=== PATIENT | male | born 1955 | race Caucasian/White ===

== ENCOUNTER 2017-01-19 21:53 | Inpatient (IN) | payer OTHER ==
[~2017-01-19] VITALS: Ht 175.3 cm; Wt 141.0 kg
[~2017-01-19 21:53] MED LIST: /MAGN40TA PO; /TAMS4CA PO; ASPI81TA4 PO; BACT2OIN TOP; BACT800T5 PO; LASI40TA PO; LISI40TAB PO; NIAC500T42 PO; POTA20LI3 PO; PROSCAR PO; TYLE325T5 PO; VIAG100T PO
[2017-01-19] MEDS ORDERED: CLINDAMYCIN 600 MG in APPROPRIATE DILUENT 1 EA IV ONE (23:15)
[2017-01-19 23:19] LABS: BASO % 0.6 % (0.0-1.0); DIFF SLIDE NUMBER 130; EOS % 2.3 % (0.0-3.0); LARGE UNSTAINED CELL % 1.7 % (0.0-4.0); LYMPH % 17.8 % (24.0-44.0); MEAN CORPUSCULAR HEMOGLOBIN 28.1 pg (27.0-33.0); MEAN CORPUSCULAR HGB CONC 30.5 g/dl (32.0-36.5); MEAN CORPUSCULAR VOLUME 91.9 fl (80.0-96.0); MONO % 9.8 % (0.0-5.0); NEUTROPHILS % 67.8 % (36.0-66.0); PLATELET COUNT, AUTOMATED 206 k/mm3 (150-450); RED CELL DISTRIBUTION WIDTH 16.2 % (11.5-14.5); WHITE BLOOD COUNT 8.4 K/mm3 (4.0-10.0)
[2017-01-19 23:20] LABS: ADD MORPHOLOGY? YES; BASO # 0.1 K/mm3 (0.0-0.2); EOS # 0.2 K/mm3 (0.0-0.50); LARGE UNSTAINED CELL # 0.1 K/mm3 (0.0-0.4); LYMPH # 1.5 K/mm3 (1.5-4.5); MONO # 0.8 K/mm3 (0.0-0.8); NEUTROPHILS # 5.7 K/mm3 (1.8-7.7)
[2017-01-19 23:33] LABS: ANION GAP 2 MEQ/L (8-16); BLOOD UREA NITROGEN 16 MG/DL (7-18); CALCIUM LEVEL 8.3 MG/DL (8.5-10.1); CARBON DIOXIDE LEVEL 39 MEQ/L (21-32); CHLORIDE LEVEL 98 MEQ/L (98-107); CREATININE FOR GFR 0.98 MG/DL (0.70-1.30); GLOMERULAR FILTRATION RATE > 60.0 (>56); GLUCOSE, FASTING 95 MG/DL (70-105); POTASSIUM SERUM 3.8 MEQ/L (3.5-5.1); SODIUM LEVEL 139 MEQ/L (136-145)
[2017-01-19 23:35] LABS: ALBUMIN 2.7 GM/DL (3.2-5.2); ALBUMIN/GLOBULIN RATIO 0.73 (1.00-1.93); BILIRUBIN,DIRECT 0.5 MG/DL (0.0-0.2); TOTAL PROTEIN 6.4 GM/DL (6.4-8.2)
[2017-01-19 23:54] LABS: ANISOCYTOSIS 1+; HYPOCHROMASIA 1+
--- NOTE | 2017-01-20 | REPUSA ---
Clinical history: Pain, swelling. Findings: The common femoral, superficial femoral, popliteal, and other deep venous structures compre ss normally and demonstrate normal color Doppler flow. Normal venous waveforms with augmentation are seen. Impression: No evidence of deep vein thrombosis in the femoral popliteal venous system.
[2017-01-20 00:04] LABS: INR 1.25
[2017-01-20] MEDS ORDERED: BACT800T5 PO (00:09)
[2017-01-20] MEDS ORDERED: FLOM5CAP PO (00:09)
[2017-01-20] MEDS ORDERED: ASPI81TA13 PO (00:09)
[2017-01-20] MEDS ORDERED: PROS5TAB PO (00:09)
[2017-01-20] MEDS ORDERED: LISI40TAB PO (00:09)
[2017-01-20] MEDS ORDERED: VIAG100T PO (00:09)
[2017-01-20] MEDS ORDERED: ACETAMINOPHEN TAB 650MG DOSE (2X325MG) PO PRN (00:45)
[2017-01-20 02:00] VITALS: BP 167/83; O2SAT 95
[2017-01-20] MEDS: CEFTAROLINE FOSAMIL 600 MG in D5W MINI-BAG PLUS 50 ML IV SCH ×2 (04:44→18:02)
[2017-01-20 05:26] LABS: MEAN CORPUSCULAR HEMOGLOBIN 27.5 pg (27.0-33.0); MEAN CORPUSCULAR HGB CONC 29.4 g/dl (32.0-36.5); MEAN CORPUSCULAR VOLUME 93.5 fl (80.0-96.0); PLATELET COUNT, AUTOMATED 191 k/mm3 (150-450); WHITE BLOOD COUNT 7.7 K/mm3 (4.0-10.0)
[2017-01-20 05:53] LABS: ALBUMIN 2.6 GM/DL (3.2-5.2); ALBUMIN/GLOBULIN RATIO 0.62 (1.00-1.93); ALKALINE PHOSPHATASE 104 U/L (45-117); ALT/SGPT 154 U/L (12-78); ANION GAP 5 MEQ/L (8-16); AST/SGOT 99 U/L (15-37); BILIRUBIN,TOTAL 1.1 MG/DL (0.2-1.0); BLOOD UREA NITROGEN 15 MG/DL (7-18); CALCIUM LEVEL 8.3 MG/DL (8.5-10.1); CARBON DIOXIDE LEVEL 35 MEQ/L (21-32); CHLORIDE LEVEL 99 MEQ/L (98-107); CHOLESTEROL LEVEL 95 MG/DL (<200); CREATININE FOR GFR 0.91 MG/DL (0.70-1.30); GLOMERULAR FILTRATION RATE > 60.0 (>56); GLUCOSE, FASTING 98 MG/DL (70-105); MAGNESIUM LEVEL 2.1 MG/DL (1.8-2.4); POTASSIUM SERUM 4.3 MEQ/L (3.5-5.1); SODIUM LEVEL 139 MEQ/L (136-145); TOTAL PROTEIN 6.8 GM/DL (6.4-8.2); TRIGLYCERIDES LEVEL 96 MG/DL (<150)
[2017-01-20 06:00] VITALS: BP 128/67
[2017-01-20 06:27] LABS: EOSINOPHILS 5 % (0-5)
[2017-01-20 06:28] LABS: ANISOCYTOSIS 1+; HYPOCHROMASIA 1+
--- NOTE | 2017-01-20 07:34 | HPE ---
DATE OF ADMISSION: 01/20/2017 REASON FOR ADMISSION: Lower extremity edema. PRIMARY CARE PROVIDER: Man Mars. HISTORY OF PRESENT ILLNESS: Patient is a 61-year-old male with past medical history significant for hypertension, BPH, obesity, borderline diabetes, chronic venous stasis, has not been following up with any providers in over a year, presented to the emergency room today with his roommate, stated he had to bring the patient in because he refused to go to the hospital or follow up with any providers. His roommate had noticed a strange odor coming from his room. They went in and noticed that his legs have been getting swollen and had an odor to them. The patient stated that he was hospitalized 4 years ago for similar symptoms. He was in the hospital for 4 days getting diuretics and antibiotics. The patient stated he was supposed to be on diuretics, but he stopped taking them after he lost his insurance and ran out of his medications. The patient noted that his lower extremity edema has been getting progressively worse over the last 2 months. He has been complaining of weakness with ambulation. He denied any chest pain. Denied any fevers or chills. No cough. No diarrhea or constipation. He has been complaining of urinary incontinence. He said this is due to his enlarged prostate and he also has a history of that. REVIEW OF SYSTEMS: 12-point review of systems was obtained all of which was negative except those mentioned above. PAST MEDICAL HISTORY: Significant for: Hypertension. Benign prostatic hypertrophy (BPH). Obesity. Borderline diabetes. Chronic venous stasis. The patient was supposed to have a sleep study in the past but did not follow up. PAST SURGICAL HISTORY: None. ALLERGIES: None. MEDICATIONS: None. SOCIAL HISTORY: The patient smokes cigars occasionally. Drinks in 6 to 8 beers a day. Lives with roommates FAMILY HISTORY: Noncontributory. PHYSICAL FINDINGS: Vitals on admission: Temperature 98.1, pulse 80, respiratory rate 20, blood pressure is 142/66, pulse ox 93% on 30 liters nasal cannula. HEENT: Pupils equal, round, reactive to light and accommodation. Neck: Supple. No JVD. Lungs: Clear to auscultation bilaterally. Abdomen: Soft, nontender. Extremities: Lower extremity venous stasis with erythema and severe edema. No open sores or ulcerations seen at this time. LABORATORY FINDINGS: WBC 8.4, hemoglobin 15.3, hematocrit 50.3, platelet count 206. Sodium 139, potassium 3.8, chloride 98, BUN 16, creatinine 0.98, lactic acid 1.1, BNP 298. Lower extremity ultrasound showed no evidence of DVT. ASSESSMENT/PLAN: 1. Lower extremity edema likely secondary to venous stasis plus or minus infection. The patient received one dose of clindamycin in the emergency room. We will continue Teflaro. We will start the patient on Lasix 60 mg IV twice daily. Monitor input and output and daily weights. The patient had an echocardiogram 4 years ago which showed diastolic congestive heart failure with preserved ejection fraction (EF). 2. Right-sided heart failure. The patient will likely need to be on long-term diuretics. Per history, he stated he was on long-term diuretics. He does not remember which one or the dose. We will start him on Lasix IV at this time and he will likely need oral medication prior to discharge. 3. History of benign prostatic hypertrophy (BPH). 4. History of alcohol dependence. We will start the patient on folic acid, multivitamin and thiamine. 5. History of hypertension. The patient's blood pressure at this time 128/67. We will hold off on starting him on any antihypertensive medications at this time. 6. Borderline diabetes. We will order hemoglobin A1c 7. Questionable obstructive sleep apnea. The patient was to follow up for a sleep study outpatient but he failed to do so. 8. Deep venous thrombosis (DVT) prophylaxis. We will start the patient on Lovenox 40 mg subcutaneously daily. MTDD
[2017-01-20 07:40] VITALS: O2SAT 93
--- NOTE | 2017-01-20 07:51 | REP ---
Clinical: Dyspnea. Findings: Cardiomegaly cannot be excluded along with left lower lobe opacity suggesting atelectasis and/or small layering left effusion. No pneumothorax. Impression: Limited examination cannot exclude cardiomegaly or left lower lobe opacity. Signed by Delfino Cabral MD 01/20/2017 07:43 A
--- NOTE | 2017-01-20 08:52 | IPN ---
DATE: 01/20/2017 Luis Enrique was seen on [address] [facility]. He is no primary care provider. He used to see Man Mars out in [facility] but stopped going there a few years ago. Missed numerous scheduled followup appointments. He has history of hypertensive heart disease, right sided heart failure, dilated left ventricle with left atrial enlargement echocardiogram from 2013, benign prostatic hypertrophy (BPH), urinary retention, morbid obesity, hyperlipidemia. He was admitted for cellulitis and edema 11/2013. He was admitted this time because of people in his apartment complex smelled bad odors coming from his apartment and found his legs swollen and his body malodorous. Admitted for cellulitis. Per patient he had some venous ulcers on the back of his legs that have actually headed some recently. PHYSICAL EXAMINATION: 128/67, pulse of 82, respiratory rate 18, 95% oxygen saturation on 5 liters. General appearance: He is lying in bed, morbidly obese. Thick neck. Narrow airway. Lungs: Decreased breath sounds. Heart: Regular rhythm. Abdomen: Obese, nontender, no masses. 2+ peripheral edema. Bright red lower extremities. There is some superficial ulceration. Most of it is scabbed over and healed. Decreased pulses in the feet probably from the edema. LABS: CBC looks unremarkable. Hematocrit is a little high at 53. Hemoglobin A1c 6.3% consistent with pre-diabetes but not cristiana diabetes. Liver functions are elevated. INR is 1.25. IMPRESSION: 1. Cellulitis both legs. He is on ceftaroline. It should provide adequate coverage. He is also on IV Lasix trying to reduce some of his significant edema. 2. Right sided heart failure. He probably has obstructive sleep apnea (KONG). He is not on any kind of therapy for this. He should probably see pulmonary before discharge, not consulting them on the holiday, but I would consider this further on his hospitalization. 3. Alcohol abuse. He about 6 beers a day. His INR is elevated suggesting probable hepatic dysfunction or cirrhosis. I have ordered liver ultrasound with Doppler flow. If he has cirrhosis, it will be important to know prognostically. He is on thiamine and folic acid. If he shows any sign of withdrawal, we could order some Serax. 4. History of cor pulmonale. He also had dilated left atrium in the past suggesting hypertensive heart disease. His blood pressure is normal now. Off any antihypertensives which makes me concerned he is developing a worse dilated cardiomyopathy. I have ordered repeat echocardiogram. 5. Deep venous thrombosis (DVT) prophylaxis, dose was increased to Lovenox 40 mg daily. Patient and Family Services (PFS) will need to get involved prior to discharge due to his poor living conditions.
[2017-01-20] MEDS ORDERED: ENOXAPARIN 30 MG/0.3 ML SYR (J1650) SC SCH (09:00)
[2017-01-20] MEDS: MULTIVITAMINS/MINERALS THERAP 1 TAB PO SCH (09:17)
[2017-01-20] MEDS: THIAMINE 100 MG TAB PO SCH (09:17)
[2017-01-20] MEDS: FOLIC ACID 1 MG TAB PO SCH (09:17)
[2017-01-20] MEDS: FUROSEMIDE 100 MG/10 ML VIAL (J1940) IV SCH ×2 (09:18→18:02)
[2017-01-20] MEDS: ENOXAPARIN 40 MG/0.4 ML SYRINGE (J1650) SC SCH (09:18)
[2017-01-20 09:20] VITALS: O2SAT 93
[2017-01-20] MEDS: NYSTATIN 100,000 UNITS/GM TOPICAL PWD 15 GM TOP SCH ×2 (11:28→21:31)
[2017-01-20 14:00] VITALS: BP 124/84
--- NOTE | 2017-01-20 19:07 | REP ---
Clinical: Cirrhosis. Technique: Real time auguste scale and color Doppler evaluation using curved array transducer. Findings: The liver demonstrates heterogeneous coarsened echotexture with poor through transmission compatible with a history of cirrhosis and hepatocellular disease. No obvious focal hepatic lesion is identified. The pancreas is incompletely evaluated due to interposed bowel gas and body habitus. The spleen is enlarged measuring 18.8 cm in craniocaudal length but demonstrates normal contour and echogenicity without focal splenic lesion. The gallbladder demonstrates wall thickening to 4.4 mm and multiple stones without pericholecystic fluid or sonographic Clifford sign. No biliary ductal dilatation is appreciated and the common bile duct measures 5.6 mm diameter. The bilateral kidneys are normal in reniform shape without hydronephrosis. Right kidney measures 12.7 x 5.2 x 5.6 cm. Left kidney measures 13.5 x 6.6 x 5.3 cm. Abdominal aorta is not visualized due to interposed bowel gas. No ascites appreciated. Doppler interrogation is extremely limited due to body habitus, technical factors and inability to remain still during examination. The hepatic veins and portal veins are normal in caliber and demonstrate normal flow direction. The hepatic artery demonstrates normal flow direction and wave pattern. Main portal vein velocity 24 cm/sec. Main portal vein measures 12 mm diameter. Left portal vein velocity 12.0 cm/sec. Right portal vein velocity 12.3 - 17.5 cm/sec. Hepatic artery velocity 40.3 cm/sec. Impression: 1. Hepatic echotexture is compatible with cirrhosis and no obvious focal hepatic lesions are identified. 2. Splenomegaly suggesting portal venous hypertension. 3. Gallbladder wall thickening and cholelithiasis without sonographic evidence for acute cholecystitis. 4. Portal vasculature demonstrates normal flow direction, but overall evaluation is limited as described above. Signed by Delfino Cabral MD 01/20/2017 06:58 P
[2017-01-20 22:00] VITALS: BP 110/57
[2017-01-21] VITALS (10 sets, daily range): BP systolic 110–145; BP diastolic 62–87
[2017-01-21] MEDS: CEFTAROLINE FOSAMIL 600 MG in D5W MINI-BAG PLUS 50 ML IV SCH ×2 (03:48→16:07)
[2017-01-21 05:57] LABS: MEAN CORPUSCULAR HEMOGLOBIN 27.3 pg (27.0-33.0); MEAN CORPUSCULAR HGB CONC 28.8 g/dl (32.0-36.5); MEAN CORPUSCULAR VOLUME 94.7 fl (80.0-96.0)
[2017-01-21 06:08] LABS: ALBUMIN 2.6 GM/DL (3.2-5.2); ALKALINE PHOSPHATASE 107 U/L (45-117); ALT/SGPT 151 U/L (12-78); AST/SGOT 86 U/L (15-37); BILIRUBIN,TOTAL 1.1 MG/DL (0.2-1.0); BLOOD UREA NITROGEN 13 MG/DL (7-18); CHLORIDE LEVEL 93 MEQ/L (98-107); CREATININE FOR GFR 0.85 MG/DL (0.70-1.30); GLOMERULAR FILTRATION RATE > 60.0 (>56); GLUCOSE, FASTING 104 MG/DL (70-105); MAGNESIUM LEVEL 1.9 MG/DL (1.8-2.4); SODIUM LEVEL 140 MEQ/L (136-145); TOTAL PROTEIN 6.9 GM/DL (6.4-8.2)
[2017-01-21 06:19] LABS: ANION GAP 3 MEQ/L (8-16); CARBON DIOXIDE LEVEL 44 MEQ/L (21-32)
--- NOTE | 2017-01-21 07:16 | ECGEPIP ---
Stationary ECG Study [facility] - ED Test Date: 2017-01-19 Pat Name: ANNE PASTRANA Department: Room: [place] [address] Gender: M Senior Hr Generalist: BarkerB: 1955 Requested By: TRINIDAD Bermudez Order Number: [id number] Reading MD: Naseem Renteria Measurements Intervals Delta Rate: 89 P: 73 RI: 174 QRS: 100 QRSD: 100 T: 46 QT: 382 QTc: 465 Interpretive Statements SINUS RHYTHM POSSIBLE LAE BORDERLINE RIGHT AXIS DEVIATION NO PRIORS Electronically Signed On 01-21-2017 7:16:09 EDT by Naseem Renteria
[2017-01-21] MEDS: TIOTROPIUM INHALER/CAPSULE (SPIRIVA) INH SCH (08:00)
[2017-01-21] MEDS: FOLIC ACID 1 MG TAB PO SCH (08:22)
[2017-01-21] MEDS: THIAMINE 100 MG TAB PO SCH (08:22)
[2017-01-21] MEDS: MULTIVITAMINS/MINERALS THERAP 1 TAB PO SCH (08:22)
[2017-01-21] MEDS: ENOXAPARIN 40 MG/0.4 ML SYRINGE (J1650) SC SCH (08:23)
[2017-01-21] MEDS: FUROSEMIDE 100 MG/10 ML VIAL (J1940) IV SCH ×2 (08:24→16:07)
[2017-01-21] MEDS: NYSTATIN 100,000 UNITS/GM TOPICAL PWD 15 GM TOP SCH ×2 (08:24→21:26)
[2017-01-21] MEDS: IPRATROPIUM 0.5MG/ALBUTEROL 2.5MG INH SOL UD 3ML (DUONEB)(J7620) NEB SCH ×3 (09:28→23:55)
[2017-01-21 09:55] LABS: ABG BASE EXCESS 14.8 (-2.0-2.0); ABG HCO3 47.6 MEQ/L (22.0-26.0); ABG PARTIAL PRESSURE CO2 105.6 mmHg (35.0-45.0); ABG PARTIAL PRESSURE O2 134.9 mmHg (75.0-100.0); ABG STANDARD HCO3 38.8 MEQ/L (22.0-26.0); ABG TOTAL CO2 50.9 MEQ/L (22.0-29.0); ABG pH (ARTERIAL) 7.272 UNITS (7.350-7.450)
--- NOTE | 2017-01-21 12:52 | CR ---
DATE OF CONSULTATION: 01/21/2017 I was asked to assist in the management of Luis Enrique Fernández here in the intensive care unit (ICU). The patient has been examined. Records and radiographic studies were reviewed. I have spoken at length with Dr. Cooney from the hospitalist service regarding his status. In essence, this is a 61-year-old gentleman who has known right sided heart failure and suspected underlying obstructive sleep apnea with chronic lower extremity edema. He was last hospitalized four years ago. Due to loss of insurance, he has not had followup or any medications in well over a year. He was brought to the hospital by roommates, as they were concerned about his leg swelling with a bad odor. He was then admitted with decompensated right sided heart failure, lower extremity edema with cellulitis. Over the last several days, there has been an increase in his serum bicarbonate. He has been getting diuretics. He was negative almost 4 liters yesterday. Blood gas was then done this morning, which showed a pH of 7.272, PCO2 of 105.6 and a PO2 of 134.9. I am asked now to assist in his care. He tells me that he feels about his usual self. He tells me that he has also wondered for quite some time whether or not he may have significant sleep apnea but did not wish to pursue it at that time. Of interest, is a nocturnal oximetry done during his last hospitalization several years ago, which showed cyclic desaturations consistent with underlying sleep apnea. He does have daytime fatigue. He says that he is fairly sedentary. He quit smoking cigars some time ago. He does have the occasional beer. No hard liquor. He said that he worked for many years at a [employer] in [place] until it closed. ALLERGIES: None listed. MEDICATIONS AT HOME: None. PAST MEDICAL HISTORY: Significant for: 1. Known hypertension. 2. Benign prostatic hypertrophy (BPH). 3. Morbid obesity. 4. Borderline diabetic. 5. Chronic venous stasis. 6. Suspected underlying obstructive sleep apnea. PAST SURGICAL HISTORY: None. SOCIAL HISTORY: Cigars, as outlined above. He says that he drinks occasionally. Social history was given to the hospitalist that he drinks 6 to 8 beers a day, but tells me that it is not every day. FAMILY HISTORY: Noncontributory. REVIEW OF SYSTEMS: As per the history of present illness. Otherwise: CONSTITUTIONAL: Negative for any recent fever or chills. HEENT: Unremarkable for double or blurred vision. PULMONARY: As per history of present illness. CARDIAC: Unremarkable for any angina, but has his known heart failure. ENDOCRINE: Significant for his borderline diabetes. DERMATOLOGIC: Significant for his chronic venous stasis changes. MUSCULOSKELETAL: Unremarkable for any new arthralgia or myalgias. ALLERGIC/IMMUNOLOGIC: Unremarkable. GASTROINTESTINAL: Unremarkable for any nausea or vomiting. GENITOURINARY: Unremarkable for dysuria or urgency. NEUROLOGIC: Unremarkable for seizures or strokes. PSYCHIATRIC: Unremarkable for any issues. PHYSICAL EXAMINATION: This is a pleasant gentleman who appears his stated age. Lying in bed in the intensive care unit (ICU) with a noninvasive mask in place. Blood pressure 125/78, heart rate 76 with a sinus mechanism. Respiratory rate 18 to 20 without accessory muscle use. HEENT: Otherwise, normocephalic and atraumatic. Pupils do react. Neck is difficult to assess his jugular venous system with body habitus and his noninvasive mask in place. CHEST: Clear anteriorly. Good breath sound intensity. Expansion is symmetric. There are decreased breath sounds with some crackles at the extreme bases bilaterally. CARDIAC: Examination is distant but regular. Peripheral pulses are markedly diminished and there is at least 3+ pitting lower extremity edema at the level of the hips, as well as dependent edema of the sacrum. ABDOMEN: Morbidly obese, soft, normoactive bowel sounds. Organomegaly or masses difficult to assess. EXTREMITIES: As outlined above. There is significant erythema with warmth almost just below the level of the knees bilaterally with clear cut chronic venous stasis changes as well. NEUROLOGIC: He is awake, alert and appropriate. PSYCHIATRIC: Normal mood and affect. Blood gases as outlined above and repeat is pending. White blood cell count is 6.0, hemoglobin 15.0, platelet count 186,000. Electrolytes from this morning: Sodium 140, potassium 4.0, chloride 93, CO2 of 44, BUN 13, creatinine 0.85. Chest x-ray shows borderline inspiratory effort, marked cardiomegaly. IMPRESSION: 1. Acute on chronic respiratory failure, predominantly hypercapnic with some element of hypoxemia. 2. Combined acid base disorder, both respiratory acidosis with metabolic alkalosis. 3. Chronic right sided heart failure. 4. Suspected severe underlying obstructive sleep apnea. 5. Alcohol use. RECOMMENDATIONS: At this point, I believe that he has chronic hypercapnic respiratory failure complicated most likely by obesity hypoventilation syndrome and obstructive sleep apnea syndrome. His recent need for diuretics has certainly driven up his serum bicarbonate and therefore he has a mixed acid base disorder. At this point, certainly, he needs to continue to have at least some level of diuresis. We will assist in his respiratory status with noninvasive support. The adjustments were made by myself and likely these may need further adjustments when he is sleeping. At some point, he clearly will need a sleep study to be done formally. At this point, he will be followed closely while he is here in the hospital. Further recommendations will be made to the progress record as new information becomes available.
[2017-01-21 17:32] LABS: ABG BASE EXCESS 19.3 (-2.0-2.0); ABG HCO3 51.1 MEQ/L (22.0-26.0); ABG PARTIAL PRESSURE CO2 95.2 mmHg (35.0-45.0); ABG PARTIAL PRESSURE O2 84.9 mmHg (75.0-100.0); ABG STANDARD HCO3 43.8 MEQ/L (22.0-26.0); ABG TOTAL CO2 54.1 MEQ/L (22.0-29.0); ABG pH (ARTERIAL) 7.348 UNITS (7.350-7.450)
[2017-01-21 20:39] LABS: MAGNESIUM LEVEL 1.6 MG/DL (1.8-2.4)
[2017-01-21] MEDS: MAG SULF 1GM/100ML (MAG RUN) 1 GM in APPROPRIATE DILUENT 1 EA IV SCH ×2 (21:26→22:47)
[2017-01-21 21:38] LABS: BLOOD UREA NITROGEN 10 MG/DL (7-18); CALCIUM LEVEL 7.8 MG/DL (8.5-10.1); CHLORIDE LEVEL 89 MEQ/L (98-107); CREATININE FOR GFR 0.88 MG/DL (0.70-1.30); GLOMERULAR FILTRATION RATE > 60.0 (>56); GLUCOSE, FASTING 116 MG/DL (70-105); POTASSIUM SERUM 3.1 MEQ/L (3.5-5.1); SODIUM LEVEL 137 MEQ/L (136-145)
[2017-01-21 21:58] LABS: CARBON DIOXIDE LEVEL 52 MEQ/L (21-32)
--- NOTE | 2017-01-21 22:02 | IPNPDOC ---
Subjective Date Seen The patient was seen on 01/21/17. Subjective Chief Complaint/HPI The patient is a 61-year-old male admitted with a reason for visit of EDEMA. 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 denies any SOb , denies any cough or phlegm , denies any chest pain , does tend to nod off repeatedly during the day. Objective Physical Examination General Exam: Positive: Alert, Cooperative, No Acute Distress Eye Exam: Positive: PERRLA, Conjunctiva & lids normal, EOMI, Negative: Sclera icteric ENT Exam: Positive: Atraumatic, Mucous membr. moist/pink, Pharynx Normal Neck Exam: Positive: JVD Chest Exam: Positive: Wheezing, Diminished Heart Exam: Positive: Rate Normal, Regular Rhythm, Normal S1, Normal S2, Murmurs, Negative: Rubs Abdomen Exam: Positive: Normal bowel sounds, Soft Extremity Exam: Positive: Edema, Swelling, Other (redness and inflamation and lymphedematous changes. ) Skin Exam: Positive: Other skin issue (chronic venous stasis dermatitis of both the legs. ) Assessment /Plan Problems (1) Acute on chronic respiratory failure with hypoxia and hypercapnia Status: Acute Problem Text: due to a combination of KONG and obesity hypoventilation syndrome now decompensated due to CHF and aggressive diuresis patient moved to ICU and started on BIPAP (2) Acute on chronic diastolic heart failure Status: Acute Problem Text: echo in 2014 shows LV diastolic dysfunction . has not had any medical follow up for more than a year so now presented with acute exacerbation of diastolic CHF will continue with iv lasix. (3) Obesity hypoventilation syndrome Status: Chronic Problem Text: on BIPAP (4) KONG (obstructive sleep apnea) Status: Chronic Problem Text: nocturnal pulse oximetry in 2014 was clearly suggestive of KONG pateint never followed up for sleep stady. will need formal sleep study after discharge from hospital (5) Pulmonary hypertension Status: Chronic (6) Right heart failure Status: Acute Problem Text: acute on chronic due to severe pulmonary hypertension and no medication for past 1 year due to loss of health insurance. (7) Cellulitis Status: Acute Problem Text: will continue with ceftaroline. (8) Morbid obesity Status: Chronic (9) Transaminitis Status: Acute Problem Text: due to congestive hepatopathy (10) Hypertension Status: Chronic (11) BPH (benign prostatic hyperplasia) Status: Chronic (12) Venous stasis ulcer Status: Chronic Plan/VTE VTE Prophylaxis Ordered?: Yes Plan/Urinary Catheter Reason for insertion/continuin: Critical Pt monitoring VS, I&O, 24H, Fishbone Vital Signs/I&O Vital Signs Date Time Temp Pulse Resp B/P (MAP) Pulse Ox O2 Delivery O2 Flow Rate FiO2 01/21/17 18:05 83 16 145/62 (89) 93 Nasal Cannula 3.0 01/21/17 16:00 35 01/21/17 11:20 97.8 I&O- Last 24 Hours up to 6 AM 01/21/17 06:00 Intake Total 1690 ml Output Total 5725 ml Balance -4035 ml Laboratory Data 24H LABS Laboratory Tests 2 01/21/17 05:43: Anion Gap 3L, Glomerular Filtration Rate > 60.0, Blood Urea Nitrogen 13, Creatinine 0.85, Sodium Level 140, Potassium Level 4.0, Chloride Level 93L, Carbon Dioxide Level 44H, Calcium Level 8.0L, Aspartate Amino Transf (AST/SGOT) 86H, Alanine Aminotransferase (ALT/SGPT) 151H, Alkaline Phosphatase 107, Total Bilirubin 1.1H, Total Protein 6.9, Albumin 2.6L, Magnesium Level 1.9, Albumin/ Globulin Ratio 0.60L 01/21/17 09:31: Blood Gas Bicarbonate Standard 38.8H, Arterial Blood pH 7.272L, Arterial Blood Partial Pressure CO2 105.6*H, Arterial Blood Partial Pressure O2 134.9H, Arterial Blood Total CO2 50.9H, Arterial Blood HCO3 47.6H, Arterial Blood Base Excess 14.8H, Arterial Blood Oxygen Saturation 99.1H 01/21/17 17:27: Blood Gas Bicarbonate Standard 43.8H, Arterial Blood pH 7.348L, Arterial Blood Partial Pressure CO2 95.2*H, Arterial Blood Partial Pressure O2 84.9, Arterial Blood Total CO2 54.1H, Arterial Blood HCO3 51.1H, Arterial Blood Base Excess 19.3H, Arterial Blood Oxygen Saturation 96.6 01/21/17 19:52: Magnesium Level 1.6L, B-Type Natriuretic Peptide 193H CBC/BMP Laboratory Tests 01/21/17 05:43 Red Blood Count 5.51, Mean Corpuscular Volume 94.7, Mean Corpuscular Hemoglobin 27.3, Mean Corpuscular Hemoglobin Concent 28.8 L, Red Cell Distribution Width 16.0 H, Calcium Level 8.0 L, Aspartate Amino Transf (AST/SGOT) 86 H, Alanine Aminotransferase (ALT/SGPT) 151 H, Alkaline Phosphatase 107, Total Bilirubin 1.1 H, Total Protein 6.9, Albumin 2.6 L Microbiology Microbiology 01/19/17 Blood Culture - Preliminary, Resulted No growth after 24 hours . All specim... 01/19/17 Blood Culture - Preliminary, Resulted No growth after 24 hours . All specim... KARINA ALEXANDRE MD January 21, 2017 22:02
[2017-01-21] MEDS ORDERED: POTASSIUM CHLORIDE 10 MEQ SR TABLET PO ONE (22:15)
--- NOTE | 2017-01-21 23:07 | ECHO ---
DATE OF PROCEDURE: 01/21/2017 REFERRING PHYSICIAN: Juan Hyde MD INDICATION: Dyspnea. HEIGHT: 69 inches WEIGHT: 373 pounds 2D MEASUREMENTS: Aortic root: 3.9 cm Proximal ascending aorta: 3.9 cm Left atrium: 4.7 cm Left ventricle diastole: 5.8 cm Ventricular septum: 1.23 cm Posterior wall: 1.28 cm DOPPLER MEASUREMENTS: Aortic valve velocity: 148 cm/s LVOT velocity: 129 cm/s LVOT VTI: 24.1 cm Mitral E velocity: 73.1 cm/s Mitral A velocity: 44.4 cm/s Mitral deceleration time: 169 ms Trace tricuspid regurgitation. Estimated right ventricle systolic pressure: 32 mmHg assuming a right atrial pressure of 5 mmHg. Pulmonary arterial systolic pressure of 20 mmHg by pulmonary acceleration time method. MITRAL ANNULAR TISSUE DOPPLER: E prime lateral: 13.1 cm/s E prime septal: 8.8 cm/s DESCRIPTION: Rhythm was sinus. No pericardial effusion. This is a technically difficult echocardiogram. CONCLUSIONS: 1. Mild eccentric left ventricle hypertrophy with normal wall motion. Normal left ventricle (LV) systolic function. Left ventricular ejection fraction (LVEF) of 65% by visual estimate. Normal left ventricle (LV) diastolic function. 2. Mild dilatation of the aortic root at both the level of the sinus of Valsalva and proximal ascending aorta. 3. Mild-moderate left atrial dilatation. 4. Suggestive of slight elevation of estimated right ventricle systolic pressure. 5. Technically difficult echocardiogram.
[2017-01-22] VITALS (11 sets, daily range): BP systolic 115–135; BP diastolic 61–80
[2017-01-22] MEDS ORDERED: POTASSIUM CHLORIDE 10 MEQ SR TABLET PO ONE (00:15)
[2017-01-22] MEDS: CEFTAROLINE FOSAMIL 600 MG in D5W MINI-BAG PLUS 50 ML IV SCH ×2 (04:35→16:59)
[2017-01-22 04:43] LABS: MEAN CORPUSCULAR HEMOGLOBIN 27.9 pg (27.0-33.0); MEAN CORPUSCULAR HGB CONC 30.4 g/dl (32.0-36.5); MEAN CORPUSCULAR VOLUME 91.9 fl (80.0-96.0); RED CELL DISTRIBUTION WIDTH 16.3 % (11.5-14.5); WHITE BLOOD COUNT 6.4 K/mm3 (4.0-10.0)
[2017-01-22 05:01] LABS: ALBUMIN 2.2 GM/DL (3.2-5.2); ALBUMIN/GLOBULIN RATIO 0.58 (1.00-1.93); ALKALINE PHOSPHATASE 88 U/L (45-117); ALT/SGPT 117 U/L (12-78); ANION GAP 4 MEQ/L (8-16); AST/SGOT 53 U/L (15-37); BLOOD UREA NITROGEN 10 MG/DL (7-18); CALCIUM LEVEL 7.8 MG/DL (8.5-10.1); CARBON DIOXIDE LEVEL 40 MEQ/L (21-32); CHLORIDE LEVEL 92 MEQ/L (98-107); CREATININE FOR GFR 0.74 MG/DL (0.70-1.30); GLOMERULAR FILTRATION RATE > 60.0 (>56); GLUCOSE, FASTING 79 MG/DL (70-105); MAGNESIUM LEVEL 1.9 MG/DL (1.8-2.4); POTASSIUM SERUM 3.8 MEQ/L (3.5-5.1); SODIUM LEVEL 136 MEQ/L (136-145)
[2017-01-22 06:36] LABS: ABG HCO3 47.8 MEQ/L (22.0-26.0); ABG PARTIAL PRESSURE CO2 86.2 mmHg (35.0-45.0); ABG PARTIAL PRESSURE O2 113.1 mmHg (75.0-100.0); ABG STANDARD HCO3 41.3 MEQ/L (22.0-26.0); ABG TOTAL CO2 50.5 MEQ/L (22.0-29.0); ABG pH (ARTERIAL) 7.362 UNITS (7.350-7.450)
[2017-01-22] MEDS: IPRATROPIUM 0.5MG/ALBUTEROL 2.5MG INH SOL UD 3ML (DUONEB)(J7620) NEB SCH ×3 (08:00→23:43)
[2017-01-22] MEDS: TIOTROPIUM INHALER/CAPSULE (SPIRIVA) INH SCH (08:47)
[2017-01-22] MEDS: ENOXAPARIN 40 MG/0.4 ML SYRINGE (J1650) SC SCH (09:02)
[2017-01-22] MEDS: THIAMINE 100 MG TAB PO SCH (09:03)
[2017-01-22] MEDS: FOLIC ACID 1 MG TAB PO SCH (09:03)
[2017-01-22] MEDS: MULTIVITAMINS/MINERALS THERAP 1 TAB PO SCH (09:03)
[2017-01-22] MEDS: FUROSEMIDE 40 MG/4 ML VIAL (J1940) IV SCH ×2 (09:03→16:59)
[2017-01-22] MEDS: NYSTATIN 100,000 UNITS/GM TOPICAL PWD 15 GM TOP SCH ×2 (09:03→20:37)
[2017-01-22] MEDS: POTASSIUM CHLORIDE 10 MEQ SR TABLET PO SCH ×2 (09:04→20:36)
--- NOTE | 2017-01-22 10:24 | IPNPDOC ---
Subjective Date Seen The patient was seen on 01/22/17. Subjective Chief Complaint/HPI The patient is a 61-year-old male admitted with a reason for visit of EDEMA. Events since last encounter no complaints this morning , slept well , tolerating BIPAP. Objective Physical Examination General Exam: Positive: Alert, Cooperative, No Acute Distress Eye Exam: Positive: PERRLA, Conjunctiva & lids normal, EOMI, Negative: Sclera icteric ENT Exam: Positive: Atraumatic, Mucous membr. moist/pink, Pharynx Normal Neck Exam: Positive: JVD Chest Exam: Positive: Wheezing, Diminished Heart Exam: Positive: Rate Normal, Regular Rhythm, Normal S1, Normal S2, Murmurs, Negative: Rubs Abdomen Exam: Positive: Normal bowel sounds, Soft Extremity Exam: Positive: Edema, Swelling, Other (redness and inflamation and lymphedematous changes. ) Skin Exam: Positive: Other skin issue (chronic venous stasis dermatitis of both the legs. ) Assessment /Plan Problems (1) Acute on chronic respiratory failure with hypoxia and hypercapnia Status: Acute Problem Text: due to a combination of KONG and obesity hypoventilation syndrome now decompensated due to CHF and aggressive diuresis patient moved to ICU and started on BIPAP (2) Acute on chronic diastolic heart failure Status: Acute Problem Text: echo in 2014 shows LV diastolic dysfunction . has not had any medical follow up for more than a year so now presented with acute exacerbation of diastolic CHF will continue with iv lasix. (3) Obesity hypoventilation syndrome Status: Chronic Problem Text: on BIPAP (4) KONG (obstructive sleep apnea) Status: Chronic Problem Text: nocturnal pulse oximetry in 2014 was clearly suggestive of KONG pateint never followed up for sleep stady. will need formal sleep study after discharge from hospital (5) Pulmonary hypertension Status: Chronic (6) Right heart failure Status: Acute Problem Text: acute on chronic due to severe pulmonary hypertension and no medication for past 1 year due to loss of health insurance. (7) Cellulitis Status: Acute Problem Text: will continue with ceftaroline. (8) Morbid obesity Status: Chronic (9) Transaminitis Status: Acute Problem Text: due to congestive hepatopathy (10) Hypertension Status: Chronic (11) BPH (benign prostatic hyperplasia) Status: Chronic (12) Venous stasis ulcer Status: Chronic Plan/VTE VTE Prophylaxis Ordered?: Yes Plan/Urinary Catheter Reason for insertion/continuin: Critical Pt monitoring VS, I&O, 24H, Fishbone Vital Signs/I&O Vital Signs Date Time Temp Pulse Resp B/P (MAP) Pulse Ox O2 Delivery O2 Flow Rate FiO2 01/22/17 08:30 93 Nasal Cannula 01/22/17 08:00 35 01/22/17 08:00 97.9 75 18 124/77 (93) 01/21/17 20:00 3.0 I&O- Last 24 Hours up to 6 AM 01/22/17 06:00 Intake Total 890 ml Output Total 5725 ml Balance -4835 ml Laboratory Data 24H LABS Laboratory Tests 2 01/21/17 17:27: Blood Gas Bicarbonate Standard 43.8H, Arterial Blood pH 7.348L, Arterial Blood Partial Pressure CO2 95.2*H, Arterial Blood Partial Pressure O2 84.9, Arterial Blood Total CO2 54.1H, Arterial Blood HCO3 51.1H, Arterial Blood Base Excess 19.3H, Arterial Blood Oxygen Saturation 96.6 01/21/17 19:52: Anion Gap , Glomerular Filtration Rate > 60.0, Blood Urea Nitrogen 10, Creatinine 0.88, Sodium Level 137, Potassium Level 3.1#L, Chloride Level 89L, Carbon Dioxide Level 52H, Calcium Level 7.8L, Magnesium Level 1.6L, B-Type Natriuretic Peptide 193H 01/22/17 04:28: Anion Gap 4L, Glomerular Filtration Rate > 60.0, Blood Urea Nitrogen 10, Creatinine 0.74, Sodium Level 136, Potassium Level 3.8#, Chloride Level 92L, Carbon Dioxide Level 40H, Calcium Level 7.8L, Magnesium Level 1.9, Aspartate Amino Transf (AST/SGOT) 53H, Alanine Aminotransferase (ALT/SGPT) 117H, Alkaline Phosphatase 88, Total Bilirubin 1.0, Total Protein 6.0L, Albumin 2.2L, Albumin/ Globulin Ratio 0.58L 01/22/17 06:27: Blood Gas Bicarbonate Standard 41.3H, Arterial Blood pH 7.362, Arterial Blood Partial Pressure CO2 86.2*H, Arterial Blood Partial Pressure O2 113.1H, Arterial Blood Total CO2 50.5H, Arterial Blood HCO3 47.8H, Arterial Blood Base Excess 17.0H, Arterial Blood Oxygen Saturation 98.4 CBC/BMP Laboratory Tests 01/21/17 19:52 Calcium Level 7.8 L 5/31/17 04:28 Calcium Level 7.8 L, Red Blood Count 5.30, Mean Corpuscular Volume 91.9, Mean Corpuscular Hemoglobin 27.9, Mean Corpuscular Hemoglobin Concent 30.4 L, Red Cell Distribution Width 16.3 H, Aspartate Amino Transf (AST/SGOT) 53 H, Alanine Aminotransferase (ALT/SGPT) 117 H, Alkaline Phosphatase 88, Total Bilirubin 1.0 , Total Protein 6.0 L, Albumin 2.2 L Microbiology Microbiology 01/19/17 Blood Culture - Preliminary, Resulted No Growth after 48 hours. All Specime... 01/19/17 Blood Culture - Preliminary, Resulted No Growth after 48 hours. All Specime... KARINA ALEXANDRE MD January 22, 2017 10:24
--- NOTE | 2017-01-22 10:26 | CCN ---
DATE: 01/22/2017 TIME OF VISIT: 10:00 a.m. I again attended Luis Enrique Fernández. The patient has been examined and available records were reviewed. He said that he is feeling a little better this morning. He is awake, alert, and comfortable. He slept well on the bilevel positive airway pressure (BIPAP). He is up this morning in the bedside chair eating breakfast. Maximum temperature (t-max) overnight 98.6, blood pressure 120 to 130 systolic, heart rate 70 to 80s, respiratory rate 16 to 22 without accessory muscle use. Currently, he is 93% saturated on 2 liters nasal cannula. Blood gas done this morning while on noninvasive support 09/04 with FiO2 of 35% shows a pH of 7.362, PCO2 of 86.2 and a PO2 of 113.1. Sodium 136, potassium 3.8, chloride 92, CO2 down to 40, BUN 10, creatinine 0.74, white blood cell count 6.4, hemoglobin 14.8, platelet count 154,000. PHYSICAL EXAMINATION: He is awake, alert and appropriate. Pupils were clear. Trachea is midline. Chest shows reasonable and symmetric expansion. Lung mendez are clear without any wheezes, rhonchi, crackles or rubs. Cardiac examination is distant but regular. Peripheral pulses are diminished. Although he has significant edema, it appears less pronounced than yesterday. Abdomen is obese, benign. Organomegaly difficult to assess. EXTREMITIES: Edema as outlined above. His lower extremities are less erythematous today. NEUROLOGIC: He is awake, alert and appropriate. PSYCHIATRIC : Normal mood and affect. IMPRESSION: 1. Acute on chronic respiratory failure with hypoxemia and hypercapnia. 2. Mixed metabolic derangement with metabolic alkalosis and respiratory acidosis. 3. Cor pulmonale. 4. Suspected obstructive sleep apnea. RECOMMENDATIONS: At this point, I am in agreement with continuing his diuresis as tolerated. It may be based on renal function. I would left him be off the noninvasive during the day and BiPAP support at night. He will clearly need a formal nocturnal polysomnography when discharged. At this point, I am in agreement with the remainder of his care. Ulcer and deep vein thrombosis (DVT) prophylaxis per the primary service. Further recommendations will be made in the progress record as new information becomes available.
[2017-01-23] VITALS (8 sets, daily range): BP systolic 114–133; BP diastolic 70–83
[2017-01-23] MEDS: CEFTAROLINE FOSAMIL 600 MG in D5W MINI-BAG PLUS 50 ML IV SCH ×2 (04:01→16:40)
[2017-01-23 05:01] LABS: ALBUMIN 2.6 GM/DL (3.2-5.2); ALBUMIN/GLOBULIN RATIO 0.67 (1.00-1.93); ALKALINE PHOSPHATASE 89 U/L (45-117); ALT/SGPT 89 U/L (12-78); ANION GAP 2 MEQ/L (8-16); AST/SGOT 35 U/L (15-37); BILIRUBIN,TOTAL 0.9 MG/DL (0.2-1.0); BLOOD UREA NITROGEN 11 MG/DL (7-18); CALCIUM LEVEL 8.2 MG/DL (8.5-10.1); CARBON DIOXIDE LEVEL 42 MEQ/L (21-32); CHLORIDE LEVEL 96 MEQ/L (98-107); CREATININE FOR GFR 0.75 MG/DL (0.70-1.30); GLOMERULAR FILTRATION RATE > 60.0 (>56); GLUCOSE, FASTING 86 MG/DL (70-105); MAGNESIUM LEVEL 1.7 MG/DL (1.8-2.4); POTASSIUM SERUM 3.7 MEQ/L (3.5-5.1); SODIUM LEVEL 140 MEQ/L (136-145); TOTAL PROTEIN 6.5 GM/DL (6.4-8.2)
[2017-01-23 05:20] LABS: MEAN CORPUSCULAR HEMOGLOBIN 27.9 pg (27.0-33.0); MEAN CORPUSCULAR HGB CONC 30.3 g/dl (32.0-36.5); MEAN CORPUSCULAR VOLUME 92.3 fl (80.0-96.0); RED CELL DISTRIBUTION WIDTH 16.2 % (11.5-14.5); WHITE BLOOD COUNT 5.1 K/mm3 (4.0-10.0)
[2017-01-23] MEDS: MAG SULF 1GM/100ML (MAG RUN) 1 GM in APPROPRIATE DILUENT 1 EA IV SCH ×2 (08:00→09:10)
[2017-01-23] MEDS: MULTIVITAMINS/MINERALS THERAP 1 TAB PO SCH (08:16)
[2017-01-23] MEDS: THIAMINE 100 MG TAB PO SCH (08:16)
[2017-01-23] MEDS: FUROSEMIDE 40 MG/4 ML VIAL (J1940) IV SCH ×2 (08:16→17:21)
[2017-01-23] MEDS: POTASSIUM CHLORIDE 10 MEQ SR TABLET PO SCH ×2 (08:16→20:35)
[2017-01-23] MEDS: FOLIC ACID 1 MG TAB PO SCH (08:16)
[2017-01-23] MEDS: ENOXAPARIN 40 MG/0.4 ML SYRINGE (J1650) SC SCH (08:17)
[2017-01-23] MEDS: NYSTATIN 100,000 UNITS/GM TOPICAL PWD 15 GM TOP SCH ×2 (08:17→20:36)
[2017-01-23] MEDS: TIOTROPIUM INHALER/CAPSULE (SPIRIVA) INH SCH (08:25)
[2017-01-23] MEDS: IPRATROPIUM 0.5MG/ALBUTEROL 2.5MG INH SOL UD 3ML (DUONEB)(J7620) NEB SCH ×3 (08:25→23:37)
--- NOTE | 2017-01-23 10:46 | CCN ---
DATE OF VISIT: 01/23/2017 I again attended Mr. Fernández here in the intensive care unit. He said he slept well on the noninvasive mask. Noted, however, that by respiratory and nursing, that while sleeping, he does have a decline in his tidal volumes and oxygen saturation. Adjustments were made by me this morning, and that will be monitored. Maximum temperature (Tmax) overnight 98.3, blood pressure 114-130 systolic, heart rate in the 70s-80s with a sinus mechanism, respiratory rate 16-22 without accessory muscle use. Intake and output (I and O) midnight to midnight ending last night at 1130 mL in with 5800 mL out. He is already negative 770 mL from midnight last night. Available laboratories reviewed. White blood cell count 5.1, hemoglobin 15.7, platelet count 162,000, no differential available. Sodium 140, potassium 3.7, chloride 96, CO2 42, BUN 11, creatinine 0.75. No new blood gases drawn today. No new chest x-ray. On examination, seated on the bedside chair. He is awake, alert, and appropriate, and says he is breathing comfortably. He is negative around 13 liters since admission, which equates to about 30 pounds that he has lost in fluid. Pupils react. Sclerae clear. Jugular venous distention (JVD) difficult to assess. Trachea is in the midline. Lung are clear to both auscultation and percussion, symmetric, and no significant focal adventitious breath sounds are identified. Cardiac examination generally regular. Peripheral pulses palpable. Edema is less. Abdomen obese, soft, normoactive bowel sounds. Extremities show his cellulitis to be much less pronounced. Edema is improving. Neurologically, grossly nonfocal. Moves all extremities well. IMPRESSION: 1. Acute on chronic respiratory failure, both hypoxemic and hypercapnic. 2. Cor. pulmonale with decompensation. 3. Obstructive sleep apnea syndrome, suspected, with currently requiring noninvasive support. 4. Cellulitis, being treated through primary service. Adjustments were made in his inspiratory and expiratory pressures. This will be monitored. Clearly, he will need a formal titration in-laboratory when he is discharged. I am in agreement with his continued diuresis. His mixed respiratory metabolic derangements at this point appear to be reasonably compensated. Further recommendations will be made in the progress record as new information becomes available.
--- NOTE | 2017-01-23 11:47 | IPNPDOC ---
Subjective Date Seen The patient was seen on 01/23/17. Subjective Chief Complaint/HPI The patient is a 61-year-old male admitted with a reason for visit of EDEMA. Events since last encounter no complaints this am , swelling significantly improved, patient now on BIPAP only at night. Objective Physical Examination General Exam: Positive: Alert, Cooperative, No Acute Distress Eye Exam: Positive: PERRLA, Conjunctiva & lids normal, EOMI, Negative: Sclera icteric ENT Exam: Positive: Atraumatic, Mucous membr. moist/pink, Pharynx Normal Neck Exam: Positive: JVD Chest Exam: Positive: Wheezing, Diminished Heart Exam: Positive: Rate Normal, Regular Rhythm, Normal S1, Normal S2, Murmurs, Negative: Rubs Abdomen Exam: Positive: Normal bowel sounds, Soft Extremity Exam: Positive: Edema, Swelling, Other (redness and inflamation and lymphedematous changes. ) Skin Exam: Positive: Other skin issue (chronic venous stasis dermatitis of both the legs. ) Assessment /Plan Problems (1) Acute on chronic respiratory failure with hypoxia and hypercapnia Status: Acute Problem Text: due to a combination of KONG and obesity hypoventilation syndrome now decompensated due to CHF and aggressive diuresis patient moved to ICU and started on BIPAP (2) Acute on chronic diastolic heart failure Status: Acute Problem Text: echo in 2014 shows LV diastolic dysfunction . has not had any medical follow up for more than a year so now presented with acute exacerbation of diastolic CHF will continue with iv lasix. (3) Obesity hypoventilation syndrome Status: Chronic Problem Text: on BIPAP (4) KONG (obstructive sleep apnea) Status: Chronic Problem Text: nocturnal pulse oximetry in 2014 was clearly suggestive of KONG pateint never followed up for sleep stady. will need formal sleep study after discharge from hospital (5) Pulmonary hypertension Status: Chronic (6) Right heart failure Status: Acute Problem Text: acute on chronic due to severe pulmonary hypertension and no medication for past 1 year due to loss of health insurance. (7) Cellulitis Status: Acute Problem Text: will continue with ceftaroline. (8) Morbid obesity Status: Chronic (9) Transaminitis Status: Acute Problem Text: due to congestive hepatopathy (10) Hypertension Status: Chronic (11) BPH (benign prostatic hyperplasia) Status: Chronic (12) Venous stasis ulcer Status: Chronic Plan/VTE VTE Prophylaxis Ordered?: Yes Plan/Urinary Catheter Reason for insertion/continuin: Critical Pt monitoring VS, I&O, 24H, Fishbone Vital Signs/I&O Vital Signs Date Time Temp Pulse Resp B/P (MAP) Pulse Ox O2 Delivery O2 Flow Rate FiO2 01/23/17 08:00 Nasal Cannula 3.0 01/23/17 08:00 98.3 83 16 125/75 (92) 94 01/23/17 06:00 35 I&O- Last 24 Hours up to 6 AM 01/23/17 05:59 Intake Total 1275 ml Output Total 5325 ml Balance -4050 ml Laboratory Data 24H LABS Laboratory Tests 2 01/23/17 04:21: Anion Gap 2L, Glomerular Filtration Rate > 60.0, Blood Urea Nitrogen 11, Creatinine 0.75, Sodium Level 140, Potassium Level 3.7, Chloride Level 96L, Carbon Dioxide Level 42H, Calcium Level 8.2L, Aspartate Amino Transf (AST/SGOT) 35, Alanine Aminotransferase (ALT/SGPT) 89H, Alkaline Phosphatase 89, Total Bilirubin 0.9, Total Protein 6.5, Albumin 2.6L, Magnesium Level 1.7L, Albumin/ Globulin Ratio 0.67L CBC/BMP Laboratory Tests 01/23/17 04:21 Red Blood Count 5.61, Mean Corpuscular Volume 92.3, Mean Corpuscular Hemoglobin 27.9, Mean Corpuscular Hemoglobin Concent 30.3 L, Red Cell Distribution Width 16.2 H, Calcium Level 8.2 L, Aspartate Amino Transf (AST/SGOT) 35, Alanine Aminotransferase (ALT/SGPT) 89 H, Alkaline Phosphatase 89, Total Bilirubin 0.9, Total Protein 6.5, Albumin 2.6 L Microbiology Microbiology 01/19/17 Blood Culture - Preliminary, Resulted No Growth after 72 hours. All specime... 01/19/17 Blood Culture - Preliminary, Resulted No Growth after 72 hours. All specime... KARINA ALEXANDRE MD Jan 23, 2017 11:47
[2017-01-24] VITALS: BP 128/71
[2017-01-24 04:00] VITALS: BP 133/78
[2017-01-24] MEDS: CEFTAROLINE FOSAMIL 600 MG in D5W MINI-BAG PLUS 50 ML IV SCH ×2 (04:30→15:57)
[2017-01-24 04:59] LABS: MEAN CORPUSCULAR HEMOGLOBIN 27.1 pg (27.0-33.0); MEAN CORPUSCULAR HGB CONC 29.6 g/dl (32.0-36.5); MEAN CORPUSCULAR VOLUME 91.5 fl (80.0-96.0); RED CELL DISTRIBUTION WIDTH 16.3 % (11.5-14.5)
[2017-01-24 05:16] LABS: ALBUMIN 2.5 GM/DL (3.2-5.2); ALBUMIN/GLOBULIN RATIO 0.61 (1.00-1.93); ALKALINE PHOSPHATASE 86 U/L (45-117); ALT/SGPT 74 U/L (12-78); ANION GAP 4 MEQ/L (8-16); AST/SGOT 32 U/L (15-37); BILIRUBIN,TOTAL 0.8 MG/DL (0.2-1.0); BLOOD UREA NITROGEN 16 MG/DL (7-18); CALCIUM LEVEL 8.6 MG/DL (8.5-10.1); CARBON DIOXIDE LEVEL 40 MEQ/L (21-32); CHLORIDE LEVEL 96 MEQ/L (98-107); CREATININE FOR GFR 0.79 MG/DL (0.70-1.30); GLOMERULAR FILTRATION RATE > 60.0 (>56); GLUCOSE, FASTING 94 MG/DL (70-105); MAGNESIUM LEVEL 1.9 MG/DL (1.8-2.4); POTASSIUM SERUM 3.9 MEQ/L (3.5-5.1); SODIUM LEVEL 140 MEQ/L (136-145); TOTAL PROTEIN 6.6 GM/DL (6.4-8.2)
[2017-01-24 08:00] VITALS: BP 121/56
[2017-01-24] MEDS: IPRATROPIUM 0.5MG/ALBUTEROL 2.5MG INH SOL UD 3ML (DUONEB)(J7620) NEB SCH ×2 (09:04→15:05)
[2017-01-24] MEDS: TIOTROPIUM INHALER/CAPSULE (SPIRIVA) INH SCH (09:04)
[2017-01-24] MEDS: NYSTATIN 100,000 UNITS/GM TOPICAL PWD 15 GM TOP SCH ×2 (09:37→20:32)
[2017-01-24] MEDS: MULTIVITAMINS/MINERALS THERAP 1 TAB PO SCH (09:37)
[2017-01-24] MEDS: THIAMINE 100 MG TAB PO SCH (09:37)
[2017-01-24] MEDS: FOLIC ACID 1 MG TAB PO SCH (09:37)
[2017-01-24] MEDS: POTASSIUM CHLORIDE 10 MEQ SR TABLET PO SCH ×2 (09:37→20:32)
[2017-01-24] MEDS: FUROSEMIDE 100 MG/10 ML VIAL (J1940) IV SCH ×2 (09:37→15:58)
[2017-01-24] MEDS: ENOXAPARIN 40 MG/0.4 ML SYRINGE (J1650) SC SCH (09:38)
--- NOTE | 2017-01-24 10:01 | CCN ---
DATE OF SERVICE: 01/24/2017 Mr. Fernández did well overnight. He is on bilevel noninvasive therapy due to acute on chronic hypercarbic hypoxic respiratory failure secondary to obesity hypoventilation. He states that his lower extremity edema has decreased. He is tolerating the bilevel noninvasive therapy. He has no complaints of chest pain or increasing shortness of breath. He is eating his breakfast sitting at bedside this morning. Temperature is 97.2, pulse is 67, respiratory rate is 18, blood pressure is 133/78, oxygen saturation is 95% on 0.35 FiO2. While on bilevel, when he is awake on 3 liters oxygen saturation is in the low 90s. GENERAL: The patient is awake, alert and oriented. No evidence of excessive somnolence. HEENT: Sclerae clear and anicteric. Pupils equal and reactive to light. Mucous membranes are moist without lesions. Oropharynx is crowded, Mallampati 4. Tongue is midline without lesions. Neck is large in circumference. No thyromegaly. No discernible elevated JVP. LYMPH: No cervical, supraclavicular, or axillary adenopathy. CARDIAC: Distant S1-S2 without audible murmur, rub or gallop. The systemic edema has decreased. PULMONARY: Decreased breath sounds at bases, otherwise clear to auscultation without rales, rhonchi or wheezes. No accessory muscle use. ABDOMEN: Obese, soft, nontender, nondistended. No hepatosplenomegaly. No masses or hernia. EXTREMITIES: There is purple discoloration to his lower extremities with decreased edema. Laboratory evaluation shows a white count of 5.0, hemoglobin of 15.5, hematocrit of 52.4, platelet count of 167, neutrophilia of 76%. Sodium is 140, potassium 3.9, chloride is 96, bicarb is 40, BUN 16, creatinine 0.79, glucose is 94. Last arterial blood gas shows a pH of 7.36, pCO2 of 86, PaO2 of 47.8, albumin is 2.5, calcium 8.6, magnesium 1.9. No new chest imaging was performed today. IMPRESSION: 1. Acute on chronic hypercarbic hypoxic respiratory failure likely secondary to obesity hypoventilation. Will continue bilevel at night a current settings. Will require home BiPAP as the patient came in in a decompensated acute on chronic right heart failure. 2. Pulmonary hypertension. Management as above. I do not see any alternative causes for pulmonary hypertension. I actually do not believe he has any COPD therefore would discontinue the Spiriva. We can perform a outpatient spirometry testing as needed. 3. Cellulitis. Management per primary team.
--- NOTE | 2017-01-24 10:32 | IPNPDOC ---
Subjective Date Seen The patient was seen on 01/24/17. Subjective Chief Complaint/HPI The patient is a 61-year-old male admitted with a reason for visit of EDEMA. Events since last encounter patient comfortable no new issues. Diuresed a negative of about 15 liters in the past 4 days. using BIPAP at night. Objective Physical Examination General Exam: Positive: Alert, Cooperative, No Acute Distress Eye Exam: Positive: PERRLA, Conjunctiva & lids normal, EOMI, Negative: Sclera icteric ENT Exam: Positive: Atraumatic, Mucous membr. moist/pink, Pharynx Normal Neck Exam: Positive: Supple Chest Exam: Positive: Clear to auscultation, Diminished Heart Exam: Positive: Rate Normal, Regular Rhythm, Normal S1, Normal S2, Murmurs, Negative: Rubs Abdomen Exam: Positive: Normal bowel sounds, Soft Extremity Exam: Positive: Edema, Swelling, Other (redness and inflamation and lymphedematous changes. ) Skin Exam: Positive: Other skin issue (chronic venous stasis dermatitis of both the legs. ) Assessment /Plan Problems (1) Acute on chronic respiratory failure with hypoxia and hypercapnia Status: Acute Problem Text: due to a combination of KONG and obesity hypoventilation syndrome now decompensated due to CHF and aggressive diuresis patient moved to ICU and started on BIPAP (2) Acute on chronic diastolic heart failure Status: Acute Problem Text: echo in 2014 shows LV diastolic dysfunction . has not had any medical follow up for more than a year so now presented with acute exacerbation of diastolic CHF will continue with iv lasix. (3) Obesity hypoventilation syndrome Status: Chronic Problem Text: on BIPAP (4) KONG (obstructive sleep apnea) Status: Chronic Problem Text: nocturnal pulse oximetry in 2014 was clearly suggestive of KONG pateint never followed up for sleep stady. will need formal sleep study after discharge from hospital (5) Pulmonary hypertension Status: Chronic (6) Right heart failure Status: Acute Problem Text: acute on chronic due to severe pulmonary hypertension and no medication for past 1 year due to loss of health insurance. (7) Cellulitis Status: Acute Problem Text: will continue with ceftaroline. (8) Morbid obesity Status: Chronic (9) Transaminitis Status: Acute Problem Text: due to congestive hepatopathy (10) Hypertension Status: Chronic (11) BPH (benign prostatic hyperplasia) Status: Chronic (12) Venous stasis ulcer Status: Chronic Plan/VTE VTE Prophylaxis Ordered?: Yes Plan/Urinary Catheter Reason for insertion/continuin: Critical Pt monitoring VS, I&O, 24H, Fishbone Vital Signs/I&O Vital Signs Date Time Temp Pulse Resp B/P (MAP) Pulse Ox O2 Delivery O2 Flow Rate FiO2 01/24/17 09:05 76 01/24/17 09:05 Nasal Cannula 3.0 01/24/17 06:00 35 01/24/17 04:00 97.2 18 133/78 (96) 95 I&O- Last 24 Hours up to 6 AM 01/24/17 06:00 Intake Total 910 ml Output Total 3325 ml Balance -2415 ml Laboratory Data 24H LABS Laboratory Tests 2 01/24/17 04:21: Anion Gap 4L, Glomerular Filtration Rate > 60.0, Blood Urea Nitrogen 16, Creatinine 0.79, Sodium Level 140, Potassium Level 3.9, Chloride Level 96L, Carbon Dioxide Level 40H, Calcium Level 8.6, Aspartate Amino Transf (AST/SGOT) 32, Alanine Aminotransferase (ALT/SGPT) 74, Alkaline Phosphatase 86, Total Bilirubin 0.8, Total Protein 6.6, Albumin 2.5L, Magnesium Level 1.9, Albumin/ Globulin Ratio 0.61L CBC/BMP Laboratory Tests 01/24/17 04:21 Red Blood Count 5.72, Mean Corpuscular Volume 91.5, Mean Corpuscular Hemoglobin 27.1, Mean Corpuscular Hemoglobin Concent 29.6 L, Red Cell Distribution Width 16.3 H, Calcium Level 8.6, Aspartate Amino Transf (AST/SGOT) 32, Alanine Aminotransferase (ALT/SGPT) 74, Alkaline Phosphatase 86, Total Bilirubin 0.8, Total Protein 6.6, Albumin 2.5 L Microbiology Microbiology 01/19/17 Blood Culture - Preliminary, Resulted No Growth after 72 hours. All specime... 01/19/17 Blood Culture - Preliminary, Resulted No Growth after 72 hours. All specime... KARINA ALEXANDRE MD Jan 24, 2017 10:32
[2017-01-24 12:00] VITALS: BP 137/65
[2017-01-24 16:00] VITALS: BP 127/67
[2017-01-24 20:00] VITALS: BP 132/81
[2017-01-25] VITALS: BP 129/85
[2017-01-25] MEDS: IPRATROPIUM 0.5MG/ALBUTEROL 2.5MG INH SOL UD 3ML (DUONEB)(J7620) NEB SCH ×3 (01:17→16:06)
[2017-01-25 04:00] VITALS: BP 135/83
[2017-01-25] MEDS: CEFTAROLINE FOSAMIL 600 MG in D5W MINI-BAG PLUS 50 ML IV SCH (04:00)
[2017-01-25 04:47] LABS: MEAN CORPUSCULAR HEMOGLOBIN 27.2 pg (27.0-33.0); MEAN CORPUSCULAR HGB CONC 29.9 g/dl (32.0-36.5); RED CELL DISTRIBUTION WIDTH 16.2 % (11.5-14.5); WHITE BLOOD COUNT 4.8 K/mm3 (4.0-10.0)
[2017-01-25 05:01] LABS: ALBUMIN 2.6 GM/DL (3.2-5.2); ALBUMIN/GLOBULIN RATIO 0.63 (1.00-1.93); ALKALINE PHOSPHATASE 89 U/L (45-117); ALT/SGPT 75 U/L (12-78); ANION GAP 7 MEQ/L (8-16); AST/SGOT 46 U/L (15-37); BILIRUBIN,TOTAL 0.7 MG/DL (0.2-1.0); BLOOD UREA NITROGEN 18 MG/DL (7-18); CALCIUM LEVEL 8.8 MG/DL (8.5-10.1); CARBON DIOXIDE LEVEL 39 MEQ/L (21-32); CHLORIDE LEVEL 95 MEQ/L (98-107); CREATININE FOR GFR 0.78 MG/DL (0.70-1.30); GLOMERULAR FILTRATION RATE > 60.0 (>56); GLUCOSE, FASTING 105 MG/DL (70-105); POTASSIUM SERUM 3.8 MEQ/L (3.5-5.1); SODIUM LEVEL 141 MEQ/L (136-145); TOTAL PROTEIN 6.7 GM/DL (6.4-8.2)
[2017-01-25 08:00] VITALS: BP 126/70
[2017-01-25] MEDS: MULTIVITAMINS/MINERALS THERAP 1 TAB PO SCH (08:34)
[2017-01-25] MEDS: THIAMINE 100 MG TAB PO SCH (08:35)
[2017-01-25] MEDS: FOLIC ACID 1 MG TAB PO SCH (08:35)
[2017-01-25] MEDS: FUROSEMIDE 100 MG/10 ML VIAL (J1940) IV SCH ×2 (08:35→16:48)
[2017-01-25] MEDS: POTASSIUM CHLORIDE 10 MEQ SR TABLET PO SCH ×2 (08:35→21:08)
[2017-01-25] MEDS: NYSTATIN 100,000 UNITS/GM TOPICAL PWD 15 GM TOP SCH ×2 (08:35→21:08)
--- NOTE | 2017-01-25 09:45 | CCN ---
DATE: 01/25/2017 I again attended Mr. Fernández. He slept well on the noninvasive support last evening. He continues to diurese. He does well during the day on nasal cannula oxygen. Maximum temperature (t-max) overnight 99.4, heart rate in the 70s with sinus mechanism. Blood pressure generally 120 to 130s. Input and output from midnight to midnight, ending last night, 1350 mL in with 5500 mL out. Most recent laboratories show white blood cell count 4.8, hemoglobin 60.4, platelet count 135,000. Sodium 141, potassium 3.8, chloride 95, CO2 of 34, BUN 18, creatinine 0.78. PHYSICAL EXAMINATION: He is awake, alert and appropriate. Membranes are moist. Trachea is in the midline. Chest is clear to auscultation and percussion. No significant focal adventitious sounds are identified. Cardiac examination is regular. Peripheral pulses diminished but palpable. Edema persists but is much less in the lower extremities. The abdomen is obese, benign. Extremities show much less erythema of the lower extremities. There is persistent edema. Neurologically, he is awake, alert and appropriate. Psychiatric with normal mood and affect. IMPRESSION: 1. Acute on chronic respiratory failure with hypoxemia and hypercapnic. 2. Cor pulmonale. 3. Obstructive sleep apnea suspected. PLAN: At this point, I am in agreement with continued diuresis. We will try him on a table top version of the noninvasive, as hopefully we can be able to move him out of the intensive care unit (ICU). We will need to coordinate getting him a nocturnal polysomnography in the outpatient setting with a formal titration to get him a device for home. I did discuss this with him at length. He is in full agreement with that and plans on being compliant. I have encouraged him to ambulate. Further recommendations will be made in the progress record as new information becomes available.
--- NOTE | 2017-01-25 10:26 | IPNPDOC ---
Subjective Date Seen The patient was seen on 01/25/17. Subjective Chief Complaint/HPI The patient is a 61-year-old male admitted with a reason for visit of EDEMA. Events since last encounter no complaints this morning lost about 40 lbs during the hospitalization. denied any sob , denied any cough or phlegm, denied any chest pain , edema has improved significantly though still present in the lateral abdominal wall and back. Objective Physical Examination General Exam: Positive: Alert, Cooperative, No Acute Distress Eye Exam: Positive: PERRLA, Conjunctiva & lids normal, EOMI, Negative: Sclera icteric ENT Exam: Positive: Atraumatic, Mucous membr. moist/pink, Pharynx Normal Neck Exam: Positive: Supple Chest Exam: Positive: Clear to auscultation, Diminished Heart Exam: Positive: Rate Normal, Regular Rhythm, Normal S1, Normal S2, Murmurs, Negative: Rubs Abdomen Exam: Positive: Normal bowel sounds, Soft Extremity Exam: Positive: Edema, Swelling, Other (redness and inflamation and lymphedematous changes. ) Skin Exam: Positive: Other skin issue (chronic venous stasis dermatitis of both the legs. ) Assessment /Plan Problems (1) Acute on chronic respiratory failure with hypoxia and hypercapnia Status: Acute Problem Text: due to a combination of KONG and obesity hypoventilation syndrome now decompensated due to CHF and aggressive diuresis patient moved to ICU and started on BIPAP (2) Acute on chronic diastolic heart failure Status: Acute Problem Text: echo in 2014 shows LV diastolic dysfunction . has not had any medical follow up for more than a year so now presented with acute exacerbation of diastolic CHF will continue with iv lasix. (3) Obesity hypoventilation syndrome Status: Chronic Problem Text: on BIPAP (4) KONG (obstructive sleep apnea) Status: Chronic Problem Text: nocturnal pulse oximetry in 2014 was clearly suggestive of KONG patient never followed up for sleep study. will need formal sleep study after discharge from hospital (5) Pulmonary hypertension Status: Chronic (6) Right heart failure Status: Acute Problem Text: acute on chronic due to severe pulmonary hypertension and no medication for past 1 year due to loss of health insurance. (7) Cellulitis Status: Acute Problem Text: will continue with ceftaroline. (8) Morbid obesity Status: Chronic (9) Transaminitis Status: Acute Problem Text: due to congestive hepatopathy (10) Hypertension Status: Chronic (11) BPH (benign prostatic hyperplasia) Status: Chronic (12) Venous stasis ulcer Status: Chronic Plan/VTE VTE Prophylaxis Ordered?: Yes Plan/Urinary Catheter Reason for insertion/continuin: Critical Pt monitoring VS, I&O, 24H, Fishbone Vital Signs/I&O Vital Signs Date Time Temp Pulse Resp B/P (MAP) Pulse Ox O2 Delivery O2 Flow Rate FiO2 01/25/17 09:46 20 91 Room Air 01/25/17 08:29 1.0 01/25/17 08:29 78 01/25/17 08:00 35 01/25/17 08:00 98.0 126/70 (88) I&O- Last 24 Hours up to 6 AM 01/25/17 06:00 Intake Total 1490 ml Output Total 5600 ml Balance -4110 ml Laboratory Data 24H LABS Laboratory Tests 2 01/25/17 04:14: Anion Gap 7L, Glomerular Filtration Rate > 60.0, Blood Urea Nitrogen 18, Creatinine 0.78, Sodium Level 141, Potassium Level 3.8, Chloride Level 95L, Carbon Dioxide Level 39H, Calcium Level 8.8, Aspartate Amino Transf (AST/SGOT) 46H, Alanine Aminotransferase (ALT/SGPT) 75, Alkaline Phosphatase 89, Total Bilirubin 0.7, Total Protein 6.7, Albumin 2.6L, Magnesium Level 2.0, Albumin/ Globulin Ratio 0.63L CBC/BMP Laboratory Tests 01/25/17 04:14 Red Blood Count 6.04, Mean Corpuscular Volume 91.0, Mean Corpuscular Hemoglobin 27.2, Mean Corpuscular Hemoglobin Concent 29.9 L, Red Cell Distribution Width 16.2 H, Calcium Level 8.8, Aspartate Amino Transf (AST/SGOT) 46 H, Alanine Aminotransferase (ALT/SGPT) 75, Alkaline Phosphatase 89, Total Bilirubin 0.7, Total Protein 6.7, Albumin 2.6 L Microbiology Microbiology 01/19/17 Blood Culture - Final, Complete NO GROWTH AFTER 5 DAYS 01/19/17 Blood Culture - Final, Complete NO GROWTH AFTER 5 DAYS KARINA ALEXANDRE MD Jan 25, 2017 10:26
[2017-01-25] MEDS: ENOXAPARIN 40 MG/0.4 ML SYRINGE (J1650) SC SCH (11:48)
[2017-01-25 11:59] VITALS: BP 125/81
[2017-01-25 16:00] VITALS: BP 134/80
[2017-01-25 19:32] VITALS: BP 130/83
[2017-01-26] VITALS: BP 138/87
[2017-01-26] MEDS: IPRATROPIUM 0.5MG/ALBUTEROL 2.5MG INH SOL UD 3ML (DUONEB)(J7620) NEB SCH ×4 (01:10→22:00)
[2017-01-26 04:00] VITALS: BP 140/77
[2017-01-26 04:37] LABS: MEAN CORPUSCULAR HEMOGLOBIN 27.7 pg (27.0-33.0); MEAN CORPUSCULAR HGB CONC 30.6 g/dl (32.0-36.5); MEAN CORPUSCULAR VOLUME 90.6 fl (80.0-96.0); RED CELL DISTRIBUTION WIDTH 16.1 % (11.5-14.5); WHITE BLOOD COUNT 5.4 K/mm3 (4.0-10.0)
[2017-01-26 04:51] LABS: ALBUMIN 2.8 GM/DL (3.2-5.2); ALKALINE PHOSPHATASE 96 U/L (45-117); ALT/SGPT 81 U/L (12-78); ANION GAP 3 MEQ/L (8-16); AST/SGOT 49 U/L (15-37); BILIRUBIN,TOTAL 0.9 MG/DL (0.2-1.0); BLOOD UREA NITROGEN 22 MG/DL (7-18); CARBON DIOXIDE LEVEL 40 MEQ/L (21-32); CHLORIDE LEVEL 96 MEQ/L (98-107); CREATININE FOR GFR 0.86 MG/DL (0.70-1.30); GLOMERULAR FILTRATION RATE > 60.0 (>56); GLUCOSE, FASTING 104 MG/DL (70-105); POTASSIUM SERUM 3.8 MEQ/L (3.5-5.1); SODIUM LEVEL 139 MEQ/L (136-145); TOTAL PROTEIN 7.5 GM/DL (6.4-8.2)
[2017-01-26] MEDS ORDERED: MOM 30ML SUSPENSION UDC PO PRN (07:15)
[2017-01-26 08:00] VITALS: BP 140/89
[2017-01-26] MEDS: POTASSIUM CHLORIDE 10 MEQ SR TABLET PO SCH ×2 (08:42→20:41)
[2017-01-26] MEDS: FUROSEMIDE 100 MG/10 ML VIAL (J1940) IV SCH ×2 (08:42→17:00)
[2017-01-26] MEDS: MULTIVITAMINS/MINERALS THERAP 1 TAB PO SCH (08:42)
[2017-01-26] MEDS: ENOXAPARIN 40 MG/0.4 ML SYRINGE (J1650) SC SCH (08:42)
[2017-01-26] MEDS: SENOKOT S TAB PO SCH ×2 (08:42→20:41)
[2017-01-26] MEDS: THIAMINE 100 MG TAB PO SCH (08:43)
[2017-01-26] MEDS: FOLIC ACID 1 MG TAB PO SCH (08:43)
[2017-01-26] MEDS: NYSTATIN 100,000 UNITS/GM TOPICAL PWD 15 GM TOP SCH ×2 (08:43→20:42)
--- NOTE | 2017-01-26 08:58 | NOCOX ---
DATE OF PROCEDURE: Night of 01/25/2017 into the morning of 01/26/2017. ORDERED BY: Dr. Stanford Done on bilevel support 11/08 with 4 liter oxygen bleed in. Study of excellent technical quality. Mean oxygen saturation for the study 88%. Lowest reliably recorded oxygen saturation 72%. The study shows marked variability. Even at current BiPAP pressures obstructive events still occur but Js-Khan respirations cannot be ruled out. IMPRESSION AND PLAN: Markedly abnormal nocturnal oximetry despite the above settings. Please correlate clinically. MARTHA
--- NOTE | 2017-01-26 10:10 | CCN ---
DATE OF VISIT: 01/26/2017 I attended Mr. Fernández here in the intensive care unit. He is awake, alert and appropriate. He slept well on his noninvasive. His NocOx has been reviewed and shows persistent significant variability with oxygen desaturations. Clearly he will need formal titration, but in the interim will increase his oxygen flow and repeat a NocOx. Maximum temperature (Tmax) overnight 97.7, heart rate generally in the 70s to 80s with a sinus mechanism. Blood pressure in the 130s. Input and output from midnight to midnight: 1986 mL in with 3900 mL out, negative another 1914 mL. Laboratories have been reviewed and show a white blood cell count 5.4, hemoglobin 17.4, platelet count 159,000. Sodium 139, potassium 3.8, chloride 96, CO2 40, BUN 22, creatinine 0.86. On exam, he is awake, alert, appropriate. Membranes are moist. Trachea is in the midline. Chest clear to auscultation and percussion. Cardiac exam is regular with no gallop. Peripheral pulses palpable. Edema is much less. Abdomen obese, benign. Extremities show no cyanosis or clubbing. As outline above, his edema is down to probably 1+ today. IMPRESSION: 1. Acute on chronic respiratory failure, both hypoxemic and hypercapnic. 2. Cor pulmonale with ongoing diuresis. 3. Obstructive sleep apnea syndrome. At this point, we will make the adjustments as alluded to above regarding his noninvasive support. He does well during the day. We will need to coordinate getting him to the sleep lab soon after discharge for a formal titration. This was discussed at length with the patient and the primary service, and the patient clearly conveys understanding. He is safe to move to the progressive care unit (PCU) on nocturnal bilevel positive airway pressure (BiPAP) support. Further recommendations will be made in the progress record as new information becomes available.
--- NOTE | 2017-01-26 10:50 | IPNPDOC ---
Subjective Date Seen The patient was seen on 01/26/17. Subjective Chief Complaint/HPI The patient is a 61-year-old male admitted with a reason for visit of EDEMA. Events since last encounter doing extremely well, no complaints this am , had nocturnal pulse oximetry done last night with support of 18/12 and oxygen of 4 liters still very abnormal with very variable so2s and obstructive events. have not had any bowel movements for last 2 days will start bowel regimen. Objective Physical Examination General Exam: Positive: Alert, Cooperative, No Acute Distress Eye Exam: Positive: PERRLA, Conjunctiva & lids normal, EOMI, Negative: Sclera icteric ENT Exam: Positive: Atraumatic, Mucous membr. moist/pink, Pharynx Normal Neck Exam: Positive: Supple Chest Exam: Positive: Clear to auscultation, Diminished Heart Exam: Positive: Rate Normal, Regular Rhythm, Normal S1, Normal S2, Murmurs, Negative: Rubs Abdomen Exam: Positive: Normal bowel sounds, Soft Extremity Exam: Positive: Edema, Swelling, Other (redness and inflamation and lymphedematous changes. ) Skin Exam: Positive: Other skin issue (chronic venous stasis dermatitis of both the legs. ) Assessment /Plan Problems (1) Acute on chronic respiratory failure with hypoxia and hypercapnia Status: Acute Problem Text: due to a combination of KONG and obesity hypoventilation syndrome now decompensated due to CHF and aggressive diuresis patient moved to ICU and started on BIPAP at present tolerating table top bipap pressures increased to 18/14 with 6 liters oxygen Had nocturnal oximetry done very abnormal will need Sleep study soon after discharge. will be moved to PCU. (2) Acute on chronic diastolic heart failure Status: Acute Problem Text: echo in 2013 shows LV diastolic dysfunction . has not had any medical follow up for more than a year so now presented with acute exacerbation of diastolic CHF will continue with iv lasix. (3) Obesity hypoventilation syndrome Status: Chronic Problem Text: on table top BIPAP sleep study will be done after discharge. (4) KONG (obstructive sleep apnea) Status: Chronic Problem Text: nocturnal pulse oximetry in 2013 was clearly suggestive of KONG patient never followed up for sleep study. will need formal sleep study after discharge from hospital continue table top bipap while in hospital with pressures of 18/14 with 6 liter oxygn support. will need to go home with nocturnal oxygen. (5) Pulmonary hypertension Status: Chronic Response to Treatment: Stable (6) Right heart failure Status: Acute Response to Treatment: Improving Problem Text: acute on chronic due to severe pulmonary hypertension and no medication for past 1 year due to loss of health insurance. (7) Cellulitis Status: Resolved Problem Text: got 5 days of ceftaroline. (8) Morbid obesity Status: Chronic (9) Transaminitis Status: Acute Response to Treatment: Improving Problem Text: due to congestive hepatopathy (10) Hypertension Status: Chronic (11) BPH (benign prostatic hyperplasia) Status: Chronic (12) Venous stasis ulcer Status: Resolved Problem Text: got 5 days of ceftaroline Plan/VTE VTE Prophylaxis Ordered?: Yes Plan/Urinary Catheter Reason for insertion/continuin: Critical Pt monitoring VS, I&O, 24H, Fishbone Vital Signs/I&O Vital Signs Date Time Temp Pulse Resp B/P (MAP) Pulse Ox O2 Delivery O2 Flow Rate FiO2 01/26/17 08:30 90 Room Air 01/26/17 08:00 4.0 01/26/17 08:00 97.2 89 18 140/89 (106) 01/25/17 08:00 35 I&O- Last 24 Hours up to 6 AM 01/26/17 06:00 Intake Total 1746 ml Output Total 3800 ml Balance -2054 ml Laboratory Data 24H LABS Laboratory Tests 2 01/26/17 04:11: Anion Gap 3L, Glomerular Filtration Rate > 60.0, Blood Urea Nitrogen 22H, Creatinine 0.86, Sodium Level 139, Potassium Level 3.8, Chloride Level 96L, Carbon Dioxide Level 40H, Calcium Level 9.0, Aspartate Amino Transf (AST/SGOT) 49H, Alanine Aminotransferase (ALT/SGPT) 81H, Alkaline Phosphatase 96, Total Bilirubin 0.9, Total Protein 7.5, Albumin 2.8L, Magnesium Level 2.0, Albumin/ Globulin Ratio 0.60L CBC/BMP Laboratory Tests 01/26/17 04:11 Red Blood Count 6.30 H, Mean Corpuscular Volume 90.6, Mean Corpuscular Hemoglobin 27.7, Mean Corpuscular Hemoglobin Concent 30.6 L, Red Cell Distribution Width 16.1 H, Calcium Level 9.0, Aspartate Amino Transf (AST/SGOT) 49 H, Alanine Aminotransferase (ALT/SGPT) 81 H, Alkaline Phosphatase 96, Total Bilirubin 0.9, Total Protein 7.5, Albumin 2.8 L Microbiology Microbiology 01/19/17 Blood Culture - Final, Complete NO GROWTH AFTER 5 DAYS 01/19/17 Blood Culture - Final, Complete NO GROWTH AFTER 5 DAYS KARINA ALEXANDRE MD Jan 26, 2017 10:49
[2017-01-26 12:00] VITALS: BP 133/85
[2017-01-26 16:00] VITALS: BP 125/80
[2017-01-26 20:00] VITALS: BP 111/70
[2017-01-27] VITALS (7 sets, daily range): BP systolic 122–137; BP diastolic 52–85
[2017-01-27 05:28] LABS: MEAN CORPUSCULAR HEMOGLOBIN 27.5 pg (27.0-33.0); MEAN CORPUSCULAR HGB CONC 30.6 g/dl (32.0-36.5); RED CELL DISTRIBUTION WIDTH 16.3 % (11.5-14.5); WHITE BLOOD COUNT 5.5 K/mm3 (4.0-10.0)
[2017-01-27 05:48] LABS: ALBUMIN 2.8 GM/DL (3.2-5.2); ALBUMIN/GLOBULIN RATIO 0.62 (1.00-1.93); ALKALINE PHOSPHATASE 97 U/L (45-117); ALT/SGPT 72 U/L (12-78); ANION GAP 5 MEQ/L (8-16); AST/SGOT 37 U/L (15-37); BLOOD UREA NITROGEN 24 MG/DL (7-18); CALCIUM LEVEL 8.7 MG/DL (8.5-10.1); CARBON DIOXIDE LEVEL 36 MEQ/L (21-32); CHLORIDE LEVEL 97 MEQ/L (98-107); GLOMERULAR FILTRATION RATE > 60.0 (>56); GLUCOSE, FASTING 97 MG/DL (70-105); POTASSIUM SERUM 3.5 MEQ/L (3.5-5.1); SODIUM LEVEL 138 MEQ/L (136-145); TOTAL PROTEIN 7.3 GM/DL (6.4-8.2)
[2017-01-27] MEDS: IPRATROPIUM 0.5MG/ALBUTEROL 2.5MG INH SOL UD 3ML (DUONEB)(J7620) NEB SCH ×3 (08:06→23:47)
[2017-01-27] MEDS: SENOKOT S TAB PO SCH ×2 (08:39→21:30)
[2017-01-27] MEDS: ENOXAPARIN 40 MG/0.4 ML SYRINGE (J1650) SC SCH (08:39)
[2017-01-27] MEDS: FUROSEMIDE 100 MG/10 ML VIAL (J1940) IV SCH ×2 (08:39→16:48)
[2017-01-27] MEDS: POTASSIUM CHLORIDE 10 MEQ SR TABLET PO SCH ×2 (08:40→21:30)
[2017-01-27] MEDS: MULTIVITAMINS/MINERALS THERAP 1 TAB PO SCH (08:40)
[2017-01-27] MEDS: THIAMINE 100 MG TAB PO SCH (08:40)
[2017-01-27] MEDS: FOLIC ACID 1 MG TAB PO SCH (08:40)
[2017-01-27] MEDS: NYSTATIN 100,000 UNITS/GM TOPICAL PWD 15 GM TOP SCH ×2 (08:41→21:30)
--- NOTE | 2017-01-27 13:58 | NOCOX ---
DATE OF SERVICE: 01/27/2017 Nocturnal oximetry recording was performed. Bilevel noninvasive therapy 18 over 4 with 6 liters bled in. Resting oxygen saturation was 94% with a heart rate of 84. Oxygen saturation was variable throughout the testing but for the most part remained above 90%. The longest continuous time with an oxygen saturation less than 88% was 32 seconds. The total time spent with an oxygen saturation less than 88% was 36 seconds. Heart rate ranged from 43-101 on oxygen saturation ranged from 86% to 99%. IMPRESSION: Variable oxygen desaturations without prolonged hypoxia.
--- NOTE | 2017-01-27 14:18 | IPN ---
DATE: 01/27/2017 I again intended Mr. Fernández in the progressive care unit. He is awake, alert, sitting at side of his bed. He had a nocturnal oximetry overnight which suggested on with 6 liters bled in that his oxygen saturation remained above 88%. He had one event, which last approximately 32 seconds less than 88% but for the most part the settings were more than adequate. He has been afebrile. He continues to have less and less lower extremity edema on a daily basis. PHYSICAL EXAMINATION: Temperature is 98.1, pulse is 90, respiratory rate is 18, blood pressures 133/72, oxygen saturation is 95% on room air while awake. General: Awake, alert and oriented. Affect and mood are appropriate. Nutrition and hygiene good. HEENT: Sclerae clear anicteric. Pupils equal, reactive to light. Mucous membranes are moist. Tongue is midline. Neck is large in circumference. No mass. Trachea is midline. Pulmonary: Clear to auscultation without rales, rhonchi or wheezes. No dullness to percussion. Cardiac: Distant S1, S2 without audible murmur, rub or gallop. Peripheral pulses are palpable. Lower extremity edema continues to decrease. There continues to be venostasis changes with purple discoloration. Abdomen is obese, soft, nontender, nondistended. No hepatosplenomegaly. No masses or hernia. Laboratory evaluation shows white blood cell count of 5.5, hemoglobin 16.8 which suggests some hemoconcentration. Sodium is 138, potassium 3.5, chloride is 97, bicarb is 36, BUN is 24, creatinine is 0.9 with a glucose of 97, albumin is 2.8. IMPRESSION: 1. Acute on chronic respiratory failure both hypoxic, hypercapnic. 2. Cor pulmonale likely secondary to obstructive sleep apnea and possible obesity hypoventilation. I believe that the best settings he has been on is with 6 liters bled and we should continue this. Will attempt to get him a fairly quick outpatient sleep test in order for him to have this therapy at home. At this point in time, I am attempting to obtain pre-approval through his insurance company for this testing.
--- NOTE | 2017-01-27 15:02 | IPNPDOC ---
Subjective Date Seen The patient was seen on 01/27/17. Subjective Chief Complaint/HPI The patient is a 61-year-old male admitted with a reason for visit of EDEMA. Constitutional: Denies: Chills, Fever, Night Sweats Pulmonary: Reports: Dyspnea Cardiovascular: Denies: Chest Pain, Palpitations, Orthopnea, Paroxysmal Noc. Dyspnea, Lt Headedness Objective Physical Examination General Exam: Positive: Alert, Cooperative, No Acute Distress Eye Exam: Positive: PERRLA, Conjunctiva & lids normal, EOMI, Negative: Sclera icteric ENT Exam: Positive: Atraumatic, Mucous membr. moist/pink, Pharynx Normal Neck Exam: Positive: Supple Chest Exam: Positive: Clear to auscultation, Diminished Heart Exam: Positive: Rate Normal, Regular Rhythm, Normal S1, Normal S2, Murmurs, Negative: Rubs Abdomen Exam: Positive: Normal bowel sounds, Soft Extremity Exam: Positive: Edema, Swelling, Other (redness and inflamation and lymphedematous changes. ) Skin Exam: Positive: Other skin issue (chronic venous stasis dermatitis of both the legs. ) Assessment /Plan Problems (1) Acute on chronic respiratory failure with hypoxia and hypercapnia Status: Acute Problem Text: due to a combination of KONG and obesity hypoventilation syndrome now decompensated due to CHF and aggressive diuresis patient moved to ICU and started on BIPAP at present tolerating table top bipap pressures increased to 18/14 with 6 liters oxygen s/p nocturnal pulse ox which showed a desaturation only once, per Dr Camara this is good setting for him Had nocturnal oximetry done but will need Sleep study soon after discharge to get him a home table top (2) Acute on chronic diastolic heart failure Status: Acute Problem Text: echo in 2013 shows LV diastolic dysfunction . has not had any medical follow up for more than a year so now presented with acute exacerbation of diastolic CHF will continue with iv lasix today, will switch to oral lasix in am pt had another 1800cc out over the last 24 hours (3) Obesity hypoventilation syndrome Status: Chronic Problem Text: on table top BIPAP sleep study will be done after discharge. (4) KONG (obstructive sleep apnea) Status: Chronic Problem Text: nocturnal pulse oximetry in 2013 was clearly suggestive of KONG patient never followed up for sleep study. will need formal sleep study after discharge from hospital continue table top bipap while in hospital with pressures of 18/14 with 6 liter oxygn support. will need to go home with nocturnal oxygen. (5) Pulmonary hypertension Status: Chronic Response to Treatment: Stable (6) Right heart failure Status: Acute Response to Treatment: Improving Problem Text: acute on chronic due to severe pulmonary hypertension and no medication for past 1 year due to loss of health insurance. (7) Cellulitis Status: Resolved Problem Text: got 5 days of ceftaroline. (8) Morbid obesity Status: Chronic (9) Transaminitis Status: Acute Response to Treatment: Improving Problem Text: due to congestive hepatopathy (10) Hypertension Status: Chronic (11) BPH (benign prostatic hyperplasia) Status: Chronic (12) Venous stasis ulcer Status: Resolved Problem Text: got 5 days of ceftaroline Plan/VTE VTE Prophylaxis Ordered?: Yes Plan/Urinary Catheter Reason for insertion/continuin: Critical Pt monitoring VS, I&O, 24H, Fishbone Vital Signs/I&O Vital Signs Date Time Temp Pulse Resp B/P (MAP) Pulse Ox O2 Delivery O2 Flow Rate FiO2 01/27/17 12:00 98.1 90 18 133/72 (92) 95 Room Air 01/27/17 04:28 4.0 01/25/17 08:00 35 I&O- Last 24 Hours up to 6 AM 01/27/17 05:59 Intake Total 1860 ml Output Total 3750 ml Balance -1890 ml Laboratory Data 24H LABS Laboratory Tests 2 01/27/17 04:48: Anion Gap 5L, Glomerular Filtration Rate > 60.0, Blood Urea Nitrogen 24H, Creatinine 0.90, Sodium Level 138, Potassium Level 3.5, Chloride Level 97L, Carbon Dioxide Level 36H, Calcium Level 8.7, Aspartate Amino Transf (AST/SGOT) 37, Alanine Aminotransferase (ALT/SGPT) 72, Alkaline Phosphatase 97, Total Bilirubin 1.0, Total Protein 7.3, Albumin 2.8L, Magnesium Level 2.0, Albumin/ Globulin Ratio 0.62L CBC/BMP Laboratory Tests 01/27/17 04:48 Red Blood Count 6.12 H, Mean Corpuscular Volume 90.0, Mean Corpuscular Hemoglobin 27.5, Mean Corpuscular Hemoglobin Concent 30.6 L, Red Cell Distribution Width 16.3 H, Calcium Level 8.7, Aspartate Amino Transf (AST/SGOT) 37, Alanine Aminotransferase (ALT/SGPT) 72, Alkaline Phosphatase 97, Total Bilirubin 1.0, Total Protein 7.3, Albumin 2.8 L Microbiology Microbiology 01/19/17 Blood Culture - Final, Complete NO GROWTH AFTER 5 DAYS 01/19/17 Blood Culture - Final, Complete NO GROWTH AFTER 5 DAYS AMARIS MALDONADO DO Jan 27, 2017 15:02
[2017-01-27] MEDS ORDERED: SLF 3 ML SYR IV PRN (21:45)
[2017-01-27] MEDS: SLF 3 ML SYR IV SCH (21:46)
[2017-01-28 04:32] VITALS: BP 130/83
[2017-01-28] MEDS: SLF 3 ML SYR IV SCH ×3 (05:15→20:32)
[2017-01-28 06:37] LABS: ALBUMIN 2.8 GM/DL (3.2-5.2); ALBUMIN/GLOBULIN RATIO 0.67 (1.00-1.93); ALKALINE PHOSPHATASE 95 U/L (45-117); ALT/SGPT 60 U/L (12-78); ANION GAP 6 MEQ/L (8-16); AST/SGOT 31 U/L (15-37); BLOOD UREA NITROGEN 25 MG/DL (7-18); CALCIUM LEVEL 8.7 MG/DL (8.5-10.1); CARBON DIOXIDE LEVEL 34 MEQ/L (21-32); CHLORIDE LEVEL 98 MEQ/L (98-107); CREATININE FOR GFR 0.88 MG/DL (0.70-1.30); GLOMERULAR FILTRATION RATE > 60.0 (>56); GLUCOSE, FASTING 98 MG/DL (70-105); MAGNESIUM LEVEL 1.9 MG/DL (1.8-2.4); POTASSIUM SERUM 3.5 MEQ/L (3.5-5.1); SODIUM LEVEL 138 MEQ/L (136-145)
[2017-01-28 06:40] LABS: MEAN CORPUSCULAR HEMOGLOBIN 27.6 pg (27.0-33.0); MEAN CORPUSCULAR HGB CONC 30.7 g/dl (32.0-36.5); MEAN CORPUSCULAR VOLUME 89.8 fl (80.0-96.0); PLATELET COUNT, AUTOMATED 148 k/mm3 (150-450); RED CELL DISTRIBUTION WIDTH 16.4 % (11.5-14.5); WHITE BLOOD COUNT 5.9 K/mm3 (4.0-10.0)
[2017-01-28] MEDS: IPRATROPIUM 0.5MG/ALBUTEROL 2.5MG INH SOL UD 3ML (DUONEB)(J7620) NEB SCH ×3 (07:13→23:05)
[2017-01-28 07:14] LABS: EOSINOPHILS 4 % (0-5)
[2017-01-28 07:15] LABS: HYPOCHROMASIA 1+
[2017-01-28 08:00] VITALS: BP 125/74
[2017-01-28] MEDS: MULTIVITAMINS/MINERALS THERAP 1 TAB PO SCH (09:07)
[2017-01-28] MEDS: POTASSIUM CHLORIDE 10 MEQ SR TABLET PO SCH ×2 (09:07→20:32)
[2017-01-28] MEDS: THIAMINE 100 MG TAB PO SCH (09:07)
[2017-01-28] MEDS: FOLIC ACID 1 MG TAB PO SCH (09:07)
[2017-01-28] MEDS: ENOXAPARIN 40 MG/0.4 ML SYRINGE (J1650) SC SCH (09:07)
[2017-01-28] MEDS: FUROSEMIDE 100 MG/10 ML VIAL (J1940) IV SCH ×2 (09:07→16:27)
[2017-01-28] MEDS: NYSTATIN 100,000 UNITS/GM TOPICAL PWD 15 GM TOP SCH ×2 (09:08→20:32)
[2017-01-28] MEDS: SENOKOT S TAB PO SCH ×2 (09:09→20:31)
[2017-01-28 11:40] VITALS: BP 122/58
--- NOTE | 2017-01-28 12:10 | IPNPDOC ---
Subjective Date Seen The patient was seen on 01/28/17. Subjective Chief Complaint/HPI The patient is a 61-year-old male admitted with a reason for visit of EDEMA. Constitutional: Denies: Chills, Fever, Night Sweats Cardiovascular: Denies: Chest Pain, Palpitations, Orthopnea, Paroxysmal Noc. Dyspnea, Lt Headedness Gastrointestinal: Denies: Nausea, Vomiting, Abdominal Pain, Diarrhea, Constipation Objective Physical Examination General Exam: Positive: Alert, Cooperative, No Acute Distress Eye Exam: Positive: PERRLA, Conjunctiva & lids normal, EOMI, Negative: Sclera icteric ENT Exam: Positive: Atraumatic, Mucous membr. moist/pink, Pharynx Normal Neck Exam: Positive: Supple Chest Exam: Positive: Clear to auscultation, Diminished Heart Exam: Positive: Rate Normal, Regular Rhythm, Normal S1, Normal S2, Murmurs, Negative: Rubs Abdomen Exam: Positive: Normal bowel sounds, Soft Extremity Exam: Positive: Edema, Swelling, Other (redness and inflamation and lymphedematous changes. ) Skin Exam: Positive: Other skin issue (chronic venous stasis dermatitis of both the legs. ) Assessment /Plan Problems (1) Acute on chronic respiratory failure with hypoxia and hypercapnia Status: Acute Problem Text: due to a combination of KONG and obesity hypoventilation syndrome now decompensated due to CHF and aggressive diuresis patient moved to ICU and started on BIPAP at present tolerating table top bipap pressures increased to 18/14 with 6 liters oxygen s/p nocturnal pulse ox which showed a desaturation only once, per Dr Camara this is good setting for him Had nocturnal oximetry done but will need Sleep study soon after discharge to get him a home table top will need to wait on insurance company to schedule sleep study prior to discharge (2) Acute on chronic diastolic heart failure Status: Acute Problem Text: echo in 2014 shows LV diastolic dysfunction . has not had any medical follow up for more than a year so now presented with acute exacerbation of diastolic CHF will continue with iv lasix today, pt had another 1900cc out over the last 24 hours (3) Obesity hypoventilation syndrome Status: Chronic Problem Text: on table top BIPAP sleep study will be done after discharge. (4) KONG (obstructive sleep apnea) Status: Chronic Problem Text: nocturnal pulse oximetry in 2013 was clearly suggestive of KONG patient never followed up for sleep study. will need formal sleep study after discharge from hospital continue table top bipap while in hospital with pressures of 18/14 with 6 liter oxygn support. will need to go home with nocturnal oxygen. (5) Pulmonary hypertension Status: Chronic Response to Treatment: Stable (6) Right heart failure Status: Acute Response to Treatment: Improving Problem Text: acute on chronic due to severe pulmonary hypertension and no medication for past 1 year due to loss of health insurance. (7) Cellulitis Status: Resolved Problem Text: got 5 days of ceftaroline. (8) Morbid obesity Status: Chronic (9) Transaminitis Status: Acute Response to Treatment: Improving Problem Text: due to congestive hepatopathy (10) Hypertension Status: Chronic (11) BPH (benign prostatic hyperplasia) Status: Chronic (12) Venous stasis ulcer Status: Resolved Problem Text: got 5 days of ceftaroline Plan/VTE VTE Prophylaxis Ordered?: Yes Plan/Urinary Catheter Reason for insertion/continuin: Critical Pt monitoring VS, I&O, 24H, Fishbone Vital Signs/I&O Vital Signs Date Time Temp Pulse Resp B/P (MAP) Pulse Ox O2 Delivery O2 Flow Rate FiO2 01/28/17 11:40 98.6 80 18 122/58 (79) 94 Room Air 01/28/17 04:41 4.0 01/25/17 08:00 35 I&O- Last 24 Hours up to 6 AM 01/28/17 06:00 Intake Total 1010 ml Output Total 2925 ml Balance -1915 ml Laboratory Data 24H LABS Laboratory Tests 2 01/28/17 05:46: Neutrophils 55, Lymphocytes (Manual) 32, Monocytes (Manual) 6, Eosinophils ( Manual) 4, Atypical Lymphocytes 3, Platelet Estimate NORMAL, Hypochromasia 1+, Anion Gap 6L, Glomerular Filtration Rate > 60.0, Blood Urea Nitrogen 25H, Creatinine 0.88, Sodium Level 138, Potassium Level 3.5, Chloride Level 98, Carbon Dioxide Level 34H, Calcium Level 8.7, Aspartate Amino Transf (AST/SGOT) 31, Alanine Aminotransferase (ALT/SGPT) 60, Alkaline Phosphatase 95, Total Bilirubin 1.0, Total Protein 7.0, Albumin 2.8L, Magnesium Level 1.9, Albumin/ Globulin Ratio 0.67L CBC/BMP Laboratory Tests 01/28/17 05:46 Red Blood Count 6.10, Mean Corpuscular Volume 89.8, Mean Corpuscular Hemoglobin 27.6, Mean Corpuscular Hemoglobin Concent 30.7 L, Red Cell Distribution Width 16.4 H, Calcium Level 8.7, Aspartate Amino Transf (AST/SGOT) 31, Alanine Aminotransferase (ALT/SGPT) 60, Alkaline Phosphatase 95, Total Bilirubin 1.0, Total Protein 7.0, Albumin 2.8 L Microbiology Microbiology 01/19/17 Blood Culture - Final, Complete NO GROWTH AFTER 5 DAYS 01/19/17 Blood Culture - Final, Complete NO GROWTH AFTER 5 DAYS AMARIS MALDONADO DO Jan 28, 2017 12:10
[2017-01-28 16:00] VITALS: BP 127/62
[2017-01-28 19:51] VITALS: BP 139/81
[2017-01-28 23:46] VITALS: BP 131/78
[2017-01-29 04:18] VITALS: BP 136/81
[2017-01-29] MEDS: SLF 3 ML SYR IV SCH ×3 (05:04→20:32)
[2017-01-29 05:40] LABS: MEAN CORPUSCULAR HEMOGLOBIN 27.9 pg (27.0-33.0); MEAN CORPUSCULAR VOLUME 89.9 fl (80.0-96.0); PLATELET COUNT, AUTOMATED 147 k/mm3 (150-450); RED CELL DISTRIBUTION WIDTH 16.3 % (11.5-14.5)
[2017-01-29 06:02] LABS: ALBUMIN 2.9 GM/DL (3.2-5.2); ALBUMIN/GLOBULIN RATIO 0.66 (1.00-1.93); ALKALINE PHOSPHATASE 99 U/L (45-117); ALT/SGPT 57 U/L (12-78); ANION GAP 7 MEQ/L (8-16); AST/SGOT 31 U/L (15-37); BILIRUBIN,TOTAL 0.9 MG/DL (0.2-1.0); BLOOD UREA NITROGEN 25 MG/DL (7-18); CALCIUM LEVEL 8.7 MG/DL (8.5-10.1); CARBON DIOXIDE LEVEL 33 MEQ/L (21-32); CHLORIDE LEVEL 98 MEQ/L (98-107); CREATININE FOR GFR 0.89 MG/DL (0.70-1.30); GLOMERULAR FILTRATION RATE > 60.0 (>56); GLUCOSE, FASTING 102 MG/DL (70-105); POTASSIUM SERUM 3.5 MEQ/L (3.5-5.1); SODIUM LEVEL 138 MEQ/L (136-145); TOTAL PROTEIN 7.3 GM/DL (6.4-8.2)
[2017-01-29 06:22] LABS: BASOPHILS 1 % (0-4); EOSINOPHILS 3 % (0-5)
[2017-01-29 06:23] LABS: ANISOCYTOSIS 1+; HYPOCHROMASIA 3+
[2017-01-29 08:00] VITALS: BP 115/66
[2017-01-29] MEDS: IPRATROPIUM 0.5MG/ALBUTEROL 2.5MG INH SOL UD 3ML (DUONEB)(J7620) NEB SCH ×3 (08:01→23:16)
[2017-01-29] MEDS: FUROSEMIDE 100 MG/10 ML VIAL (J1940) IV SCH ×2 (08:35→17:41)
[2017-01-29] MEDS: POTASSIUM CHLORIDE 10 MEQ SR TABLET PO SCH ×2 (08:35→20:31)
[2017-01-29] MEDS: SENOKOT S TAB PO SCH ×2 (08:36→20:31)
[2017-01-29] MEDS: FOLIC ACID 1 MG TAB PO SCH (08:36)
[2017-01-29] MEDS: THIAMINE 100 MG TAB PO SCH (08:36)
[2017-01-29] MEDS: MULTIVITAMINS/MINERALS THERAP 1 TAB PO SCH (08:36)
[2017-01-29] MEDS: ENOXAPARIN 40 MG/0.4 ML SYRINGE (J1650) SC SCH (08:36)
[2017-01-29] MEDS: NYSTATIN 100,000 UNITS/GM TOPICAL PWD 15 GM TOP SCH ×2 (08:37→20:33)
--- NOTE | 2017-01-29 09:54 | IPNPDOC ---
Subjective Date Seen The patient was seen on 01/29/17. Subjective Chief Complaint/HPI The patient is a 61-year-old male admitted with a reason for visit of EDEMA. Events since last encounter pt seen and examined, doing well, continues to have good urine outpt, still using bipap at night. Objective Physical Examination General Exam: Positive: Alert, Cooperative, No Acute Distress Eye Exam: Positive: PERRLA, Conjunctiva & lids normal, EOMI, Negative: Sclera icteric ENT Exam: Positive: Atraumatic, Mucous membr. moist/pink, Pharynx Normal Neck Exam: Positive: Supple Chest Exam: Positive: Clear to auscultation, Diminished Heart Exam: Positive: Rate Normal, Regular Rhythm, Normal S1, Normal S2, Murmurs, Negative: Rubs Abdomen Exam: Positive: Normal bowel sounds, Soft Extremity Exam: Positive: Edema, Swelling, Other (redness and inflamation and lymphedematous changes. ) Skin Exam: Positive: Other skin issue (chronic venous stasis dermatitis of both the legs. ) Assessment /Plan Problems (1) Acute on chronic diastolic heart failure Status: Acute Problem Text: echo in 2013 shows LV diastolic dysfunction . has not had any medical follow up for more than a year so now presented with acute exacerbation of diastolic CHF will continue with iv lasix today, pt had another 3000cc out over the last 24 hours (2) Acute on chronic respiratory failure with hypoxia and hypercapnia Status: Acute Problem Text: due to a combination of KONG and obesity hypoventilation syndrome now decompensated due to CHF and aggressive diuresis patient moved to ICU and started on BIPAP at present tolerating table top bipap pressures increased to 18/14 with 6 liters oxygen s/p nocturnal pulse ox which showed a desaturation only once, per Dr Camara this is good setting for him Had nocturnal oximetry done but will need Sleep study soon after discharge to get him a home table top will need to wait on insurance company to schedule sleep study prior to discharge (3) Obesity hypoventilation syndrome Status: Chronic Problem Text: on table top BIPAP sleep study will be done after discharge. (4) KONG (obstructive sleep apnea) Status: Chronic Problem Text: nocturnal pulse oximetry in 2013 was clearly suggestive of KONG patient never followed up for sleep study. will need formal sleep study after discharge from hospital continue table top bipap while in hospital with pressures of 18/14 with 6 liter oxygn support. will need to go home with nocturnal oxygen. (5) Pulmonary hypertension Status: Chronic Response to Treatment: Stable (6) Right heart failure Status: Acute Response to Treatment: Improving Problem Text: acute on chronic due to severe pulmonary hypertension and no medication for past 1 year due to loss of health insurance. Pt has not been taking his medication outpt due to loss of insurance (7) Cellulitis Status: Resolved Problem Text: got 5 days of ceftaroline. (8) Morbid obesity Status: Chronic (9) Transaminitis Status: Acute Response to Treatment: Improving Problem Text: due to congestive hepatopathy (10) Hypertension Status: Chronic (11) BPH (benign prostatic hyperplasia) Status: Chronic (12) Venous stasis ulcer Status: Resolved Problem Text: got 5 days of ceftaroline Plan/VTE VTE Prophylaxis Ordered?: Yes Plan/Urinary Catheter Reason for insertion/continuin: Critical Pt monitoring VS, I&O, 24H, Fishbone Vital Signs/I&O Vital Signs Date Time Temp Pulse Resp B/P (MAP) Pulse Ox O2 Delivery O2 Flow Rate FiO2 01/29/17 08:02 BIPAP/CPAP 6.0 01/29/17 08:00 97.8 72 18 115/66 (82) 97 01/25/17 08:00 35 I&O- Last 24 Hours up to 6 AM 01/29/17 06:00 Intake Total 840 ml Output Total 4600 ml Balance -3760 ml Laboratory Data 24H LABS Laboratory Tests 2 01/29/17 05:05: Neutrophils 61, Lymphocytes (Manual) 25, Monocytes (Manual) 6, Eosinophils ( Manual) 3, Basophils (Manual) 1, Atypical Lymphocytes 4, Platelet Estimate NORMAL, Hypochromasia 3+, Anisocytosis 1+, Anion Gap 7L, Glomerular Filtration Rate > 60.0, Blood Urea Nitrogen 25H, Creatinine 0.89, Sodium Level 138, Potassium Level 3.5, Chloride Level 98, Carbon Dioxide Level 33H, Calcium Level 8.7, Aspartate Amino Transf (AST/SGOT) 31, Alanine Aminotransferase (ALT/SGPT) 57, Alkaline Phosphatase 99, Total Bilirubin 0.9, Total Protein 7.3, Albumin 2.9L, Magnesium Level 2.0, Albumin/Globulin Ratio 0.66L CBC/BMP Laboratory Tests 01/29/17 05:05 Red Blood Count 6.20 H, Mean Corpuscular Volume 89.9, Mean Corpuscular Hemoglobin 27.9, Mean Corpuscular Hemoglobin Concent 31.0 L, Red Cell Distribution Width 16.3 H, Calcium Level 8.7, Aspartate Amino Transf (AST/SGOT) 31, Alanine Aminotransferase (ALT/SGPT) 57, Alkaline Phosphatase 99, Total Bilirubin 0.9, Total Protein 7.3, Albumin 2.9 L Microbiology Microbiology 01/19/17 Blood Culture - Final, Complete NO GROWTH AFTER 5 DAYS 01/19/17 Blood Culture - Final, Complete NO GROWTH AFTER 5 DAYS AMARIS MALDONADO DO Jan 29, 2017 09:54
[2017-01-29 12:00] VITALS: BP 135/89
[2017-01-29 17:30] VITALS: BP 117/63
[2017-01-29 22:00] VITALS: BP 152/83
[2017-01-30] MEDS: SLF 3 ML SYR IV SCH ×2 (05:55→14:07)
[2017-01-30 06:00] VITALS: BP 151/91
[2017-01-30] MEDS: IPRATROPIUM 0.5MG/ALBUTEROL 2.5MG INH SOL UD 3ML (DUONEB)(J7620) NEB SCH ×2 (07:16→15:25)
[2017-01-30 07:41] LABS: ADD MORPHOLOGY? YES; EOS # 0.2 K/mm3 (0.0-0.50); EOS % 4.7 % (0.0-3.0); LARGE UNSTAINED CELL # 0.1 K/mm3 (0.0-0.4); LARGE UNSTAINED CELL % 2.8 % (0.0-4.0); LYMPH # 1.5 K/mm3 (1.5-4.5); LYMPH % 26.3 % (24.0-44.0); MEAN CORPUSCULAR HEMOGLOBIN 27.3 pg (27.0-33.0); MEAN CORPUSCULAR HGB CONC 30.5 g/dl (32.0-36.5); MEAN CORPUSCULAR VOLUME 89.4 fl (80.0-96.0); MONO # 0.4 K/mm3 (0.0-0.8); MONO % 6.7 % (0.0-5.0); NEUTROPHILS % 58.5 % (36.0-66.0); PLATELET COUNT, AUTOMATED 140 k/mm3 (150-450); RED CELL DISTRIBUTION WIDTH 16.3 % (11.5-14.5); WHITE BLOOD COUNT 5.2 K/mm3 (4.0-10.0)
[2017-01-30 08:13] LABS: HYPOCHROMASIA 1+
--- NOTE | 2017-01-30 09:23 | IPNPDOC ---
Subjective Date Seen The patient was seen on 01/30/17. Subjective Chief Complaint/HPI The patient is a 61-year-old male admitted with a reason for visit of EDEMA. Events since last encounter pt seen and examined continues to do well, no overnight events, no chest pain or shortness of breath Objective Physical Examination General Exam: Positive: Alert, Cooperative, No Acute Distress Eye Exam: Positive: PERRLA, Conjunctiva & lids normal, EOMI, Negative: Sclera icteric ENT Exam: Positive: Atraumatic, Mucous membr. moist/pink, Pharynx Normal Neck Exam: Positive: Supple Chest Exam: Positive: Clear to auscultation, Diminished Heart Exam: Positive: Rate Normal, Regular Rhythm, Normal S1, Normal S2, Murmurs, Negative: Rubs Abdomen Exam: Positive: Normal bowel sounds, Soft Extremity Exam: Positive: Edema, Swelling, Other (redness and inflamation and lymphedematous changes. ) Skin Exam: Positive: Other skin issue (chronic venous stasis dermatitis of both the legs. ) Assessment /Plan Problems (1) Acute on chronic diastolic heart failure Status: Acute Problem Text: * echo in 2013 shows LV diastolic dysfunction. has not had any medical follow up for more than a year so now presented with acute exacerbation of diastolic CHF * will continue with iv lasix today, I/O, daily weights (2) Acute on chronic respiratory failure with hypoxia and hypercapnia Status: Resolved Problem Text: * due to a combination of KONG and obesity hypoventilation syndrome pt had decompensated due to CHF and aggressive diuresis * patient was moved to ICU and started on BIPAP * at present tolerating table top bipap pressures increased to 18/14 with 4 liters oxygen * s/p nocturnal pulse ox which showed a desaturations * Had nocturnal oximetry done but will need Sleep study soon after discharge to get him a home table top * will need to wait on insurance company to schedule sleep study prior to discharge (3) Obesity hypoventilation syndrome Status: Chronic Problem Text: * on table top BIPAP * sleep study will be done after discharge. (4) KONG (obstructive sleep apnea) Status: Chronic Problem Text: nocturnal pulse oximetry in 2013 was clearly suggestive of KONG patient never followed up for sleep study. will need formal sleep study after discharge from hospital continue table top bipap while in hospital with pressures of 18/14 with 6 liter oxygn support. will need to go home with nocturnal oxygen. (5) Pulmonary hypertension Status: Chronic Response to Treatment: Stable (6) Right heart failure Status: Acute Response to Treatment: Improving Problem Text: acute on chronic due to severe pulmonary hypertension and no medication for past 1 year due to loss of health insurance. Pt has not been taking his medication outpt due to loss of insurance (7) Cellulitis Status: Resolved Problem Text: * got 5 days of ceftaroline. (8) Morbid obesity Status: Chronic (9) Transaminitis Status: Acute Response to Treatment: Improving Problem Text: * due to congestive hepatopathy vs history of alcohol dependence (10) Hypertension Status: Chronic (11) BPH (benign prostatic hyperplasia) Status: Chronic (12) Venous stasis ulcer Status: Resolved Problem Text: got 5 days of ceftaroline (13) EtOH dependence Status: Chronic Problem Text: * continue mvi, thiamine, folate Plan/VTE VTE Prophylaxis Ordered?: Yes Plan/Urinary Catheter Reason for insertion/continuin: Critical Pt monitoring VS, I&O, 24H, Fishbone Vital Signs/I&O Vital Signs Date Time Temp Pulse Resp B/P (MAP) Pulse Ox O2 Delivery O2 Flow Rate FiO2 01/30/17 06:00 96.8 77 16 151/91 (111) 96 Room Air 01/29/17 12:17 4.0 01/25/17 08:00 35 I&O- Last 24 Hours up to 6 AM 01/30/17 06:00 Intake Total 1980 ml Output Total 4600 ml Balance -2620 ml Laboratory Data 24H LABS Laboratory Tests 2 01/30/17 07:00: White Blood Count 5.2, Red Blood Count 6.06, Hemoglobin 16.5, Hematocrit 54.2H, Mean Corpuscular Volume 89.4, Mean Corpuscular Hemoglobin 27.3, Mean Corpuscular Hemoglobin Concent 30.5L, Red Cell Distribution Width 16.3H, Platelet Count 140L, Neutrophils (%) (Auto) 58.5, Lymphocytes (%) (Auto) 26.3, Monocytes (%) (Auto) 6.7H, Eosinophils (%) (Auto) 4.7H, Basophils (%) (Auto) 1.0 , Neutrophils # (Auto) 3.0, Lymphocytes # (Auto) 1.5, Monocytes # (Auto) 0.4, Eosinophils # (Auto) 0.2, Basophils # (Auto) 0.0, Large Unclassified Cells % 2.8 , Large Unclassified Cells # 0.1, Platelet Estimate DECREASED, Hypochromasia 1+ 01/30/17 09:04: CBC/BMP Laboratory Tests 01/30/17 07:00 Red Blood Count 6.06, Mean Corpuscular Volume 89.4, Mean Corpuscular Hemoglobin 27.3, Mean Corpuscular Hemoglobin Concent 30.5 L, Red Cell Distribution Width 16.3 H, Neutrophils (%) (Auto) 58.5, Lymphocytes (%) (Auto) 26.3, Monocytes (%) (Auto) 6.7 H, Eosinophils (%) (Auto) 4.7 H, Basophils (%) (Auto) 1.0, Neutrophils # (Auto) 3.0, Lymphocytes # (Auto) 1.5, Monocytes # (Auto) 0.4, Eosinophils # (Auto) 0.2, Basophils # (Auto) 0.0 AMARIS MALDONADO DO Jan 30, 2017 09:23
[2017-01-30] MEDS: MULTIVITAMINS/MINERALS THERAP 1 TAB PO SCH (09:33)
[2017-01-30] MEDS: ENOXAPARIN 40 MG/0.4 ML SYRINGE (J1650) SC SCH (09:33)
[2017-01-30] MEDS: NYSTATIN 100,000 UNITS/GM TOPICAL PWD 15 GM TOP SCH (09:33)
[2017-01-30] MEDS: THIAMINE 100 MG TAB PO SCH (09:33)
[2017-01-30] MEDS: FOLIC ACID 1 MG TAB PO SCH (09:33)
[2017-01-30] MEDS: POTASSIUM CHLORIDE 10 MEQ SR TABLET PO SCH (09:33)
[2017-01-30] MEDS: FUROSEMIDE 100 MG/10 ML VIAL (J1940) IV SCH ×2 (09:33→18:25)
[2017-01-30] MEDS: SENOKOT S TAB PO SCH (09:33)
[2017-01-30 10:09] LABS: ALBUMIN/GLOBULIN RATIO 0.71 (1.00-1.93); ALKALINE PHOSPHATASE 113 U/L (45-117); ALT/SGPT 62 U/L (12-78); ANION GAP 7 MEQ/L (8-16); AST/SGOT 46 U/L (15-37); BILIRUBIN,TOTAL 0.8 MG/DL (0.2-1.0); BLOOD UREA NITROGEN 23 MG/DL (7-18); CALCIUM LEVEL 9.1 MG/DL (8.5-10.1); CARBON DIOXIDE LEVEL 34 MEQ/L (21-32); CHLORIDE LEVEL 98 MEQ/L (98-107); CREATININE FOR GFR 1.08 MG/DL (0.70-1.30); GLOMERULAR FILTRATION RATE > 60.0 (>56); GLUCOSE, FASTING 212 MG/DL (70-105); MAGNESIUM LEVEL 2.1 MG/DL (1.8-2.4); POTASSIUM SERUM 3.9 MEQ/L (3.5-5.1); SODIUM LEVEL 139 MEQ/L (136-145); TOTAL PROTEIN 7.2 GM/DL (6.4-8.2)
[2017-01-30] MEDS ORDERED: VITMTA PO (12:16)
[2017-01-30] MEDS ORDERED: POTA10CA PO (12:16)
[2017-01-30] MEDS ORDERED: [UNRECOGNIZED DRUG - CODE] PO (12:16)
[2017-01-30 14:00] VITALS: BP 130/86
--- NOTE | 2017-02-15 18:45 | DSES ---
DATE OF ADMISSION: 01/20/2017 DATE OF DISCHARGE: 01/30/2017 REASON FOR ADMISSION: Lower extremity edema. PRIMARY CARE PROVIDER: Luiz Mars FINAL DIAGNOSES: 1. Congestive heart failure exacerbation. 2. Acute on chronic respiratory failure. 3. Obesity hypoventilation syndrome. 4. Obstructive sleep apnea. 5. Pulmonary hypertension. 6. Right heart failure. 7. Cellulitis. 8. Morbid obesity. 9. Hypertension. 10. Benign prostatic hypertrophy. 11. Venous stasis ulcer, status post treatment with antibiotics, ceftaroline. 12. Alcohol dependence. HISTORY OF PRESENT ILLNESS: The patient is a 61-year-old male who presented to the hospital with lower extremity edema after he was brought in by his roommate for increasing lower extremity edema and odor coming from his leg. The patient was admitted under hospitalist service. Echocardiogram was ordered. The patient was found to have diastolic congestive heart failure and fluid overload. The patient was started on intravenous (IV) Lasix. The patient's respiratory status continued to decompensate, requiring moving into the intensive care unit (ICU) and consultation by chicken hanger, Dr. Stanford. he was needing a trial of bilevel positive airway pressure (BiPAP). After his respiratory status had improved, he was moved out. He continued to be diuresed until he was diuresed appropriately, and he was returned back to dry weight. Patient was re-established with primary care provider to followup with upon discharge. DISCHARGE INSTRUCTIONS: He is to followup with primary care provider in 1-2 weeks. DIET: Low-sodium diet. ACTIVITIES: As tolerated. DISCHARGE MEDICATIONS: Include: - Lasix 60 mg daily by mouth twice a day - multivitamin one tablet by mouth daily - potassium 40 mEq by mouth daily DISCHARGE CONDITION: Stable. MTDD
== END 2017-01-30 19:00 | disposition home or self-care (01) | DRG 194 ==
LOC: M ED 22:30 → M ED INP 01-20 01:02 → M MS5PR 01-20 01:55 → M ICU 01-21 11:10 → M PCU 01-26 16:37 → M MS5PR 01-29 17:10
PROVIDERS: ADMIT Internal Medicine; ATTEND Internal Medicine
DX: I11.0 Hypertensive heart disease with heart failure (principal); J96.21 Acute and chronic respiratory failure with hypoxia; E87.2 Acidosis; I27.2 Other secondary pulmonary hypertension; E66.2 Morbid (severe) obesity with alveolar hypoventilation; L03.115 Cellulitis of right lower limb; J96.22 Acute and chronic respiratory failure with hypercapnia; L03.116 Cellulitis of left lower limb; N40.0 Benign prostatic hyperplasia without lower urinary tract symptoms; G47.33 Obstructive sleep apnea (adult) (pediatric); F10.10 Alcohol abuse, uncomplicated; I87.2 Venous insufficiency (chronic) (peripheral); I50.33 Acute on chronic diastolic (congestive) heart failure

== ENCOUNTER → 2017-01-30 | Outpatient (CLI) | payer OTHER ==
[~2017-01-30] MED LIST changes: +ASPI81TA13 PO; +FLOM5CAP PO; +POTA10CA PO; +PROS5TAB PO; +VITMTA PO; +[UNRECOGNIZED DRUG - CODE] PO
--- NOTE | 2017-02-03 06:52 | SLEEPCENT ---
DATE OF PROCEDURE: 01/30/2017 ORDERED BY: Jerome Camara DO Nocturnal polysomnography was performed due to concern for the obstructive sleep apnea syndrome. 8 hours and 15 minutes of data were reviewed. There were 427 minutes of sleep identified. Sleep latency was normal at 14 minutes. Rapid eye movement (REM) was prolonged at 213 minutes. Sleep architecture initially fragmented improved substantially after interventions were made. Overall sleep efficiency was 87%. EKG showed a sinus rhythm with an average heart rate of 68 beats per minute. EEG showed normal waveforms for awake and sleep. There were 283 respiratory events identified of 10 seconds in duration or greater for an apnea hypopnea index of 39.7. Having clearly established the presence of obstructive sleep apnea syndrome prior to midnight, testing was stopped for the application of pressure therapy. The patient was fit with a [employer] [place], Simplus full face mask of medium size. 4 cm of water pressure were applied to the circuit and the lights were extinguished. Despite optimal mask fit and minimal air leak, the patient required a change to a bilevel device. Titration proceeded over the course of the study and best pressure identified was an in inspiratory of 18 over expiratory 14 with which the patient slept through REM without respiratory event or oxygen desaturation. There was significant limb activity but arousals were few. IMPRESSION: Severe obstructive sleep apnea syndrome (G47.33). Apnea hypopnea index 39.7. RECOMMENDATION: Nightly use of bilevel pressure 18 inspiratory/14 expiratory.
== END ==
LOC: M SLEEP 19:33
PROVIDERS: ATTEND Internal Medicine Pulmonary Disease
DX: G47.30 Sleep apnea, unspecified (principal); R06.83 Snoring; R40.0 Somnolence

== ENCOUNTER → 2017-02-06 | Outpatient (REF) | payer OTHER ==
[2017-02-06 20:37] LABS: BASO # 0.1 K/mm3 (0.0-0.2); BASO % 0.7 % (0.0-1.0); EOS # 0.4 K/mm3 (0.0-0.50); EOS % 4.5 % (0.0-3.0); LARGE UNSTAINED CELL # 0.1 K/mm3 (0.0-0.4); LARGE UNSTAINED CELL % 1.8 % (0.0-4.0); LYMPH # 2.1 K/mm3 (1.5-4.5); LYMPH % 24.6 % (24.0-44.0); MEAN CORPUSCULAR HEMOGLOBIN 27.5 pg (27.0-33.0); MEAN CORPUSCULAR HGB CONC 31.2 g/dl (32.0-36.5); MEAN CORPUSCULAR VOLUME 88.1 fl (80.0-96.0); MONO # 0.4 K/mm3 (0.0-0.8); MONO % 5.5 % (0.0-5.0); NEUTROPHILS # 4.9 K/mm3 (1.8-7.7); NEUTROPHILS % 62.8 % (36.0-66.0); PLATELET COUNT, AUTOMATED 208 k/mm3 (150-450); RED CELL DISTRIBUTION WIDTH 16.1 % (11.5-14.5); WHITE BLOOD COUNT 7.8 K/mm3 (4.0-10.0)
[2017-02-06 20:54] LABS: ALBUMIN 3.4 GM/DL (3.2-5.2); ALBUMIN/GLOBULIN RATIO 0.81 (1.00-1.93); ALKALINE PHOSPHATASE 131 U/L (45-117); ALT/SGPT 49 U/L (12-78); ANION GAP 8 MEQ/L (8-16); AST/SGOT 30 U/L (15-37); BILIRUBIN,TOTAL 0.5 MG/DL (0.2-1.0); BLOOD UREA NITROGEN 13 MG/DL (7-18); CALCIUM LEVEL 9.3 MG/DL (8.5-10.1); CARBON DIOXIDE LEVEL 36 MEQ/L (21-32); CHLORIDE LEVEL 95 MEQ/L (98-107); CHOLESTEROL LEVEL 180 MG/DL (<200); CREATININE FOR GFR 0.94 MG/DL (0.70-1.30); GLOMERULAR FILTRATION RATE > 60.0 (>56); GLUCOSE, FASTING 104 MG/DL (70-105); POTASSIUM SERUM 3.3 MEQ/L (3.5-5.1); SODIUM LEVEL 139 MEQ/L (136-145); TOTAL PROTEIN 7.6 GM/DL (6.4-8.2); TRIGLYCERIDES LEVEL 180 MG/DL (<150)
== END ==
LOC: M SFHCLERA 16:34
PROVIDERS: ATTEND Physician Assistant
DX: I10 Essential (primary) hypertension (principal); R73.01 Impaired fasting glucose; E78.2 Mixed hyperlipidemia; N40.1 Benign prostatic hyperplasia with lower urinary tract symptoms; R97.20 Elevated prostate specific antigen [PSA]

== ENCOUNTER → 2017-07-24 | Outpatient (REF) | payer OTHER ==
[~2017-07-24] MED LIST changes: -ASPI81TA13 PO; +ASPI81TA24 PO
[2017-07-24 17:36] LABS: MEAN CORPUSCULAR HEMOGLOBIN 31.9 pg (27.0-33.0); MEAN CORPUSCULAR HGB CONC 33.6 g/dl (32.0-36.5); MEAN CORPUSCULAR VOLUME 95.1 fl (80.0-96.0); PLATELET COUNT, AUTOMATED 214 10^3/uL (150-450); RED CELL DISTRIBUTION WIDTH 12.5 % (11.5-14.5); WHITE BLOOD COUNT 8.4 10^3/uL (4.0-10.0)
[2017-07-24 18:13] LABS: ALBUMIN 3.5 GM/DL (3.2-5.2); ALBUMIN/GLOBULIN RATIO 0.92 (1.00-1.93); ALKALINE PHOSPHATASE 95 U/L (45-117); ALT/SGPT 49 U/L (12-78); ANION GAP 8 MEQ/L (8-16); AST/SGOT 29 U/L (7-37); BILIRUBIN,TOTAL 0.5 MG/DL (0.2-1.0); BLOOD UREA NITROGEN 9 MG/DL (7-18); CALCIUM LEVEL 9.1 MG/DL (8.5-10.1); CARBON DIOXIDE LEVEL 30 MEQ/L (21-32); CHLORIDE LEVEL 106 MEQ/L (98-107); CREATININE FOR GFR 0.97 MG/DL (0.70-1.30); GLOMERULAR FILTRATION RATE > 60.0 (>56); GLUCOSE, FASTING 143 MG/DL (70-105); POTASSIUM SERUM 3.9 MEQ/L (3.5-5.1); SODIUM LEVEL 144 MEQ/L (136-145); TOTAL PROTEIN 7.3 GM/DL (6.4-8.2)
== END ==
LOC: M SFHCLERA 11:02
PROVIDERS: ATTEND Physician Assistant
DX: I10 Essential (primary) hypertension (principal); I50.32 Chronic diastolic (congestive) heart failure; N40.0 Benign prostatic hyperplasia without lower urinary tract symptoms; R73.01 Impaired fasting glucose

== ENCOUNTER 2017-09-21 17:18 | Emergency (ER) | payer OTHER ==
[2017-09-21 17:49] LABS: KETONE, URINE AUTO RFX NEGATIVE (NEGATIVE); LEUKOCYTE ESTERASE UR AUTO RFX NEGATIVE (NEGATIVE); MUCUS, URINE RFX SMALL (NEGATIVE); NITRITE, URINE AUTO RFX NEGATIVE (NEGATIVE); RBC, URINE AUTO RFX 0 /HPF (0-3); SPECIFIC GRAVITY UR AUTO RFX 1.005 (1.002-1.035); SQUAM EPITHELIAL CELL UR AURFX 0 /HPF (0-6); WBC, URINE AUTO RFX 1 /HPF (0-3)
== END 2017-09-21 18:58 | disposition home or self-care (01) ==
LOC: M ED 17:18
DX: N39.41 Urge incontinence (principal); N48.1 Balanitis; N40.1 Benign prostatic hyperplasia with lower urinary tract symptoms; I50.9 Heart failure, unspecified; F17.200 Nicotine dependence, unspecified, uncomplicated; Z79.899 Other long term (current) drug therapy
CPT/HCPCS: 81001

== ENCOUNTER 2018-03-07 11:09 | Emergency (ER) | payer OTHER ==
[2018-03-07 11:43] LABS: KETONE, URINE AUTO RFX NEGATIVE (NEGATIVE); LEUKOCYTE ESTERASE UR AUTO RFX NEGATIVE (NEGATIVE); MUCUS, URINE RFX SMALL (NEGATIVE); NITRITE, URINE AUTO RFX NEGATIVE (NEGATIVE); RBC, URINE AUTO RFX 3 /HPF (0-3); SPECIFIC GRAVITY UR AUTO RFX 1.017 (1.002-1.035); SQUAM EPITHELIAL CELL UR AURFX 1 /HPF (0-6); WBC, URINE AUTO RFX 5 /HPF (0-3)
[2018-03-07] MEDS: TAMSULOSIN 0.4 MG CAP PO (12:23)
== END 2018-03-07 12:36 | disposition home or self-care (01) ==
LOC: M ED 11:09
DX: N40.1 Benign prostatic hyperplasia with lower urinary tract symptoms (principal); I50.9 Heart failure, unspecified; I11.0 Hypertensive heart disease with heart failure; G47.33 Obstructive sleep apnea (adult) (pediatric); K21.9 Gastro-esophageal reflux disease without esophagitis; F17.210 Nicotine dependence, cigarettes, uncomplicated
CPT/HCPCS: 81001

== ENCOUNTER 2018-04-25 12:11 | Emergency (ER) | payer OTHER ==
[2018-04-25 14:07] LABS: KETONE, URINE AUTO RFX NEGATIVE (NEGATIVE); LEUKOCYTE ESTERASE UR AUTO RFX 2+ (NEGATIVE); MUCUS, URINE RFX SMALL (NEGATIVE); NITRITE, URINE AUTO RFX NEGATIVE (NEGATIVE); RBC, URINE AUTO RFX 2 /HPF (0-3); SPECIFIC GRAVITY UR AUTO RFX 1.011 (1.002-1.035); SQUAM EPITHELIAL CELL UR AURFX 1 /HPF (0-6); WBC, URINE AUTO RFX 83 /HPF (0-3)
== END 2018-04-25 15:17 | disposition home or self-care (01) ==
LOC: M ED 12:11
DX: N45.1 Epididymitis (principal); N43.3 Hydrocele, unspecified; N45.2 Orchitis; I86.1 Scrotal varices; I11.0 Hypertensive heart disease with heart failure; N44.1 Cyst of tunica albuginea testis; I50.9 Heart failure, unspecified; K21.9 Gastro-esophageal reflux disease without esophagitis; N40.0 Benign prostatic hyperplasia without lower urinary tract symptoms; G47.33 Obstructive sleep apnea (adult) (pediatric); Z79.899 Other long term (current) drug therapy; F17.210 Nicotine dependence, cigarettes, uncomplicated
CPT/HCPCS: 76870

== ENCOUNTER → 2018-10-09 | Outpatient (REF) | payer OTHER ==
[~2018-10-09] MED LIST changes: +AMLO5TAB6 PO; +CLOT1CRE6 TOP; +FLOM0.4C39 PO; -FLOM5CAP PO; +KLOR10TA76 PO; +LEVA250T13 PO; +LISI40TA PO; -POTA10CA PO
[2018-10-09 16:35] LABS: BASO % 0.6 % (0.0-1.0); EOS # 0.2 10^3/uL (0.0-0.50); EOS % 2.2 % (0.0-3.0); HEMATOCRIT 49.9 % (42.0-52.0); HEMOGLOBIN 16.8 g/dl (13.5-17.5); LYMPH # 1.5 10^3/uL (1.5-4.5); LYMPH % 22.1 % (24.0-44.0); MEAN CORPUSCULAR HEMOGLOBIN 30.8 pg (27.0-33.0); MEAN CORPUSCULAR HGB CONC 33.7 g/dl (32.0-36.5); MEAN CORPUSCULAR VOLUME 91.4 fl (80.0-96.0); MONO # 0.6 10^3/uL (0.0-0.8); MONO % 8.2 % (0.0-5.0); NEUTROPHILS # 4.5 10^3/uL (1.8-7.7); NEUTROPHILS % 66.6 % (36.0-66.0); PLATELET COUNT, AUTOMATED 200 10^3/uL (150-450); RED BLOOD COUNT 5.46 10^6/uL (4.30-6.10); WHITE BLOOD COUNT 6.8 10^3/uL (4.0-10.0)
[2018-10-09 16:50] LABS: ALBUMIN 3.8 GM/DL (3.2-5.2); ALT/SGPT 45 U/L (12-78); BILIRUBIN,TOTAL 0.9 MG/DL (0.2-1.0); BLOOD UREA NITROGEN 10 MG/DL (7-18); CALCIUM LEVEL 9.1 MG/DL (8.8-10.2); CARBON DIOXIDE LEVEL 26 MEQ/L (21-32); CHLORIDE LEVEL 104 MEQ/L (98-107); CHOLESTEROL LEVEL 183 MG/DL (<200); CHOLESTEROL RISK RATIO 4.692 (<5); CREATININE FOR GFR 0.88 MG/DL (0.70-1.30); GLOMERULAR FILTRATION RATE > 60.0 (>49); GLUCOSE, FASTING 104 MG/DL (70-100); HDL CHOLESTEROL 39 MG/DL (>40); LDL CHOLESTEROL 124 MG/DL (<100); NON-HDL-C 144 MG/DL; POTASSIUM SERUM 3.9 MEQ/L (3.5-5.1); SODIUM LEVEL 140 MEQ/L (136-145); TOTAL PROTEIN 7.3 GM/DL (6.4-8.2); TRIGLYCERIDES LEVEL 102 MG/DL (<150)
[2018-10-09 17:14] LABS: HEMOGLOBIN A1c 6.3 %
[2018-10-13 08:06] LABS: PSA TOTAL 3.9 ng/mL (0.0-4.0)
== END ==
LOC: M SFHCLERA 14:04
PROVIDERS: ATTEND Nurse Practitioner Family
DX: I10 Essential (primary) hypertension (principal); E78.2 Mixed hyperlipidemia; R73.01 Impaired fasting glucose; N40.0 Benign prostatic hyperplasia without lower urinary tract symptoms

== ENCOUNTER 2019-05-19 19:03 | Emergency (ER) | payer OTHER ==
[~2019-05-19] VITALS: Ht 175.3 cm; Wt 170.0 kg
[~2019-05-19 19:03] MED LIST changes: -/MAGN40TA PO; -/TAMS4CA PO; +CLOT1CRE2 TOP; -CLOT1CRE6 TOP; +LISI40TA52 PO; -LISI40TAB PO; +MAGN400T15 PO
[2019-05-19] MEDS ORDERED: LISI40TA PO (19:13)
[2019-05-19 20:33] LABS: BASO % 0.5 % (0.0-1.0); EOS # 0.2 10^3/uL (0.0-0.5); HEMATOCRIT 54.4 % (42.0-52.0); HEMOGLOBIN 16.9 g/dl (13.5-17.5); LYMPH # 1.2 10^3/uL (1.5-5.0); LYMPH % 15.3 % (24.0-44.0); MEAN CORPUSCULAR HEMOGLOBIN 31.1 pg (27.0-33.0); MEAN CORPUSCULAR HGB CONC 31.1 g/dl (32.0-36.5); MEAN CORPUSCULAR VOLUME 100.2 fl (80.0-96.0); MONO # 0.8 10^3/uL (0.0-0.8); MONO % 9.6 % (0.0-5.0); NEUTROPHILS # 5.6 10^3/uL (1.5-8.5); NEUTROPHILS % 71.3 % (36.0-66.0); PLATELET COUNT, AUTOMATED 186 10^3/uL (150-450); RED BLOOD COUNT 5.43 10^6/uL (4.30-6.10); WHITE BLOOD COUNT 7.9 10^3/uL (4.0-10.0)
[2019-05-19] MEDS ORDERED: ceFAZolin SOD 1 GM in D5W MINI-BAG PLUS 50 ML IV ONE (20:45)
[2019-05-19 20:51] LABS: ALBUMIN 3.2 GM/DL (3.2-5.2); ALT/SGPT 48 U/L (12-78); BILIRUBIN,TOTAL 0.4 MG/DL (0.2-1.0); BLOOD UREA NITROGEN 17 MG/DL (7-18); C REACTIVE PROTEIN QUANTITATIV 2.92 MG/DL (0.00-0.30); CALCIUM LEVEL 8.9 MG/DL (8.8-10.2); CARBON DIOXIDE LEVEL 33 MEQ/L (21-32); CHLORIDE LEVEL 102 MEQ/L (98-107); GLOMERULAR FILTRATION RATE > 60.0 (>49); GLUCOSE, FASTING 104 MG/DL (70-100); POTASSIUM SERUM 4.3 MEQ/L (3.5-5.1); SODIUM LEVEL 140 MEQ/L (136-145); TOTAL PROTEIN 6.9 GM/DL (6.4-8.2)
[2019-05-19 21:25] LABS: ERYTHROCYTE SEDIMENTATION RATE 2 mm/hr (0-20)
--- NOTE | 2019-05-19 21:41 | REPVR ---
PROCEDURE INFORMATION: Exam: US Duplex Bilateral Lower Extremity Veins Exam date and time: 05/19/2019 9:34 PM Clinical history: 63 years old, male; Pain; Leg, lower; Bilateral; Additional info: Redness, pain, swelling TECHNIQUE: Imaging protocol: Real-time duplex ultrasound of the Bilateral Lower Extremities with 2-D auguste scale, color Doppler flow and spectral waveform analysis with image documentation. Complete exam focused on the bilateral lower extremity veins. COMPARISON: US Duplex, Ext LOWER veins, bilat 01/19/2017 11:16 PM FINDINGS: Limitations: Body habitus. Right deep veins: Unremarkable. The common femoral, femoral, proximal profunda femoral and popliteal veins are patent without thrombus. Normal Doppler waveforms. Normal compressibility and/or augmentation response. Right superficial veins: Saphenofemoral junction is patent without thrombus. Left deep veins: Unremarkable. The common femoral, femoral, proximal profunda femoral and popliteal veins are patent without thrombus. Normal Doppler waveforms. Normal compressibility and/or augmentation response. Left superficial veins: Saphenofemoral junction is patent without thrombus. Soft tissues: Unremarkable. IMPRESSION: No deep venous thrombus demonstrated in either lower extremity. Electronically signed by: Naresh King On 05/19/2019 21:40:34 PM
--- NOTE | 2019-05-19 22:16 | REPVR ---
PROCEDURE INFORMATION: Exam: CT Right Lower Extremity Without Contrast; Lower Leg Exam date and time: 05/19/2019 8:45 PM Clinical history: 63 years old, male; Edema and swelling or effusion of joint; No, it is generalized; Other: Leg; Additional info: Wound, erythema, swelling TECHNIQUE: Imaging protocol: CT of the Right lower extremity without contrast was performed. Exam focused on the lower leg. Radiation optimization: All CT scans at this facility use at least one of these dose optimization techniques: automated exposure control; mA and/or kV adjustment per patient size (includes targeted exams where dose is matched to clinical indication); or iterative reconstruction. COMPARISON: CT LOWER EXTREMITY WITH CONTRAST 12/01/2013 10:11 PM FINDINGS: Bones/joints: No acute fracture is identified. There is no osseous erosion or cortical destruction. No focal lytic or blastic lesion is identified. The knee and ankle joints are normally aligned and demonstrate mild degenerative changes. No significant knee or ankle joint effusion is evident. Soft tissues: There is moderate subcutaneous edema about much of the leg, sparing the posterior aspect proximally, and fairly circumferential elsewhere. No gross collection to suggest abscess is evident on this unenhanced exam. There is no abnormal soft tissue gas. Vasculature: Atherosclerotic vascular calcifications are noted. IMPRESSION: Moderate subcutaneous edema about much of the leg, without gross abscess or CT evidence for osteomyelitis. Electronically signed by: Naresh King On 05/19/2019 22:15:44 PM
[2019-05-19 22:30] LABS: NT-PRO BNP 159 PG/ML (<125)
[2019-05-19 23:23] VITALS: BP 142/73
[2019-05-19] MEDS ORDERED: BACT400T PO (23:23)
[2019-05-19] MEDS ORDERED: BACTRIM 160MG/800MG DS TAB PO ONE (23:30)
--- NOTE | 2019-05-20 01:15 | REP ---
Clinical: History of CHF with lower extremity edema. Technique: PA and lateral. Comparison: 01/19/2017. Findings: Cardiomegaly is appreciated with indistinct, prominent pulmonary vasculature and increased interstitial markings consistent with CHF and pulmonary edema. No focal consolidation. No obvious effusion. No pneumothorax. Skeletal structures intact. Impression: Cardiomegaly and pulmonary interstitial edema. Electronically Signed by Delfino Cabral MD 05/20/2019 01:07 A
== END 2019-05-19 23:48 | disposition home or self-care (01) ==
LOC: M ED 19:03
DX: I87.2 Venous insufficiency (chronic) (peripheral) (principal); L03.115 Cellulitis of right lower limb; R22.43 Localized swelling, mass and lump, lower limb, bilateral; L97.919 Non-pressure chronic ulcer of unspecified part of right lower leg with unspecified severity; J90 Pleural effusion, not elsewhere classified; F17.210 Nicotine dependence, cigarettes, uncomplicated; I11.9 Hypertensive heart disease without heart failure; E78.49 Other hyperlipidemia; I50.9 Heart failure, unspecified; G47.33 Obstructive sleep apnea (adult) (pediatric); K21.9 Gastro-esophageal reflux disease without esophagitis
CPT/HCPCS: 36415; 71046; 73700; 80053; 83036; 83605; 83880; 85025; 85652; 86140; 87040; 87070; 87077; 87186; 93970; 96365; 96366; 99284; J0690